=== PATIENT | female | born 1955 | race Caucasian/White ===

== ENCOUNTER 2019-03-24 10:10 | Inpatient (IN) | payer SELFPAY ==
[2019-03-24] VITALS (9 sets, daily range): BP systolic 105–155; BP diastolic 58–85; PULSE 79–111; RESP 12–22; TEMP 36.4–39.6; O2SAT 94–98; BMI 25.4; BMI 26.2
--- NOTE | 2019-03-24 10:44 | ED_ITS ---
HPI - Fever General Chief Complaint: Fever Stated Complaint: Fever,Shakes, feels like passing out Time Seen by Provider: 03/24/19 10:29 Source: patient Mode of arrival: ambulatory Limitations: no limitations History of Present Illness HPI Narrative: Patient is a 63-year-old female who presents with cough fever shortness of breath ongoing for last 4 days. She also has been nauseated but no vomiting. She has had fever as chills shakes sweats. She currently has a temperature of 103? in the ED. She is coughing. She traveled to [facility] last month for 2 weeks. Was doing well until 4 days ago. No specific abdominal pain just nausea. Related Data Home Medications Medication Instructions Recorded Confirmed Vitamin D3 03/24/19 Allergies Allergy/AdvReac Type Severity Reaction Status Date / Time morphine Allergy Verified 03/24/19 10:22 Review of Systems Review of Systems ROS Unobtainable: All systems reviewed & are unremarkable except as noted in HPI and below Constitutional Reports body ache(s), Reports chills and Reports fever(s) Eyes Denies change in vision, Denies eye discharge, Denies irritation and Denies loss of vision ENT Ears, Nose, Mouth, and Throat: Denies change in voice, Denies neck pain and Denies sore throat Cardiovascular Denies chest pain, Denies irregular heart rhythm, Denies lightheadedness, Denies palpitations, Reports dyspnea and Denies orthopnea Respiratory Reports cough, Denies hemoptysis, Reports pain with cough and Reports dyspnea Gastrointestinal Gastrointestinal: Denies abdominal pain, Denies change in bowel habits, Denies diarrhea, Denies nausea and Denies vomiting Genitourinary Denies hematuria, Denies flank pain, Denies urinary incontinence and Denies urinary urgency Musculoskeletal Denies neck pain Integumentary/Breasts Denies pruritus, Denies erythema, Denies rash and Denies wounds Neurologic Denies loss of vision Endocrine Denies palpitations [facility] Medical History (Updated 03/24/19 @ 15:45 by Cassandra Pinedo RN) H/O: hysterectomy (Acute) Patient denies significant medical history (Acute) Surgical History (Updated 03/24/19 @ 15:47 by Cassandra Pinedo RN) H/O bone graft (Acute) History of removal of cyst (Acute) Social History household members: children Smoking Status: Former smoker alcohol intake: never substance use type: does not use Social History household members: children Smoking Status: Former smoker alcohol intake: never substance use type: does not use Exam Initial Vital Signs Initial Vital Signs: Vital Signs Temperature 103.3 F H 03/24/19 10:22 Pulse Rate 111 H 03/24/19 10:22 Respiratory Rate 22 03/24/19 10:22 Blood Pressure 155/85 H 03/24/19 10:22 Pulse Oximetry 94 03/24/19 10:22 GENERAL: Ill-appearing middle-aged female coughing HEENT: Head atraumatic,EOMI, pupils reactive, face symmetric CARDIOVASCULAR: Regular rate and rhythm without murmurs, rubs or gallops. RESPIRATORY: Breath sounds equal bilaterally, no wheezes rales or rhonchi. ABDOMEN: Soft, nontender. Normoactive bowel sounds all 4 quadrants. No guarding or rebound. EXTREMITIES: Normal range of motion, no clubbing or edema. Neurovascularly intact NEUROLOGICAL: Alert and oriented x4.Normal gait and speech. Cranial nerves II through XII grossly intact. SKIN: Warm, dry, no laceration, no petechiae, no rashes or lesions. Course Orders Ordered: ED Orders 03/24/19 10:15 Lipase Stat 03/24/19 10:42 XR chest 1V Stat 03/24/19 10:45 Complete Blood Count AUTO DIFF Stat Comprehensive Metabolic Panel Stat Lactate (Lactic Acid) Stat Procalcitonin Stat 03/24/19 11:16 Blood Culture Stat 03/24/19 11:59 CT abdomen pelvis w con Stat 03/24/19 12:05 Ictotest Urine Stat Urinalysis and Microscopic Stat Urine Culture Stat 03/24/19 13:34 Education, smoking cessation ONGOING 03/24/19 14:47 Education, smoking cessation Once 03/25/19 05:00 Basic Metabolic Panel Routine Complete Blood Count AUTO DIFF Routine Hepatic (Liver) Panel Routine Procalcitonin Routine Acetaminophen (Tylenol) 650 mg PO Q6HR PRN PRN Reason: As Needed for Fever/Mild Pain Last Admin: 03/24/19 17:17 Dose: 650 mg Al Hydrox/Mg Hydrox/Simethicone (Maalox Plus) 30 ml PO Q6HR PRN PRN Reason: Dyspepsia Enoxaparin Sodium (Lovenox) 40 mg SUBCUT DAILY MARIA G Piperacillin/Tazobactam/Dextrose (Zosyn) 3.375 gm in 50 mls @ 100 mls/hr IV Q6H MARIA G Last Admin: 03/24/19 17:34 Dose: 100 mls/hr Sodium Chloride (Normal Saline 0.9%) 1,000 mls @ 100 mls/hr IV CONT MARIA G Last Admin: 03/24/19 17:32 Dose: 100 mls/hr Magnesium Hydroxide (Milk Of Magnesia) 30 ml PO DAILY PRN PRN Reason: Constipation Ondansetron HCl (Zofran) 4 mg IV Q4HR PRN PRN Reason: Nausea And Vomiting Discontinued Medications Sodium Chloride (Normal Saline 0.9%) 1,000 mls @ 1,000 mls/hr IV BOLUS ONE Stop: 03/24/19 11:41 Last Infusion: 03/24/19 12:15 Dose: 0 mls/hr Admin: 03/24/19 11:19 Dose: 1,000 mls/hr Piperacillin/Tazobactam/Dextrose (Zosyn) 3.375 gm in 50 mls @ 100 mls/hr IV NOW ONE Stop: 03/24/19 12:20 Last Infusion: 03/24/19 12:40 Dose: 0 mls/hr Admin: 03/24/19 12:12 Dose: 100 mls/hr Sodium Chloride (Normal Saline 0.9%) 1,837.05 mls @ 612.35 mls/hr 30 ml/kg infuse over 3 hr (1837.05 ml) IV NOW ONE Stop: 03/24/19 16:37 Last Infusion: 03/24/19 17:34 Dose: 100 mls/hr Admin: 03/24/19 14:23 Dose: 612.35 mls/hr Ketorolac Tromethamine (Toradol) 30 mg IV NOW ONE Stop: 03/24/19 10:43 Last Admin: 03/24/19 11:18 Dose: 30 mg Ondansetron HCl (Zofran) 4 mg IV NOW ONE Stop: 03/24/19 10:45 Last Admin: 03/24/19 11:19 Dose: 4 mg Vital Signs - 8 hr 03/24/19 10:22 03/24/19 12:11 03/24/19 12:30 Temperature 103.3 F H 100.7 F H Pulse Rate 111 H 82 Respiratory Rate 22 12 Blood Pressure 155/85 H Blood Pressure [Left Arm] 117/58 L Pulse Oximetry 94 98 03/24/19 13:24 03/24/19 13:40 03/24/19 15:51 Temperature 100.7 F H 97.5 F L Pulse Rate 80 80 Respiratory Rate 15 16 Blood Pressure 105/59 L 129/73 Blood Pressure [Left Arm] Pulse Oximetry 98 97 96 03/24/19 15:57 Temperature 98.2 F Pulse Rate 79 Respiratory Rate 16 Blood Pressure 122/66 Blood Pressure [Left Arm] Pulse Oximetry 97 MDM - Fever Lab Data Attestation: I reviewed the patient's lab results. Result diagrams: 03/24/19 10:45 03/24/19 10:45 Lab Results 03/24/19 03/24/19 03/24/19 Range/Units 10:15 10:45 10:45 WBC 16.6 H (4.5-11.0) X10^3/uL RBC 4.24 (4.0-5.2) X10^6/uL Hgb 12.7 (12.0-16.0) g/dL Hct 38.0 (36-46) % MCV 89.5 (80-100) fL MCH 30.0 (26-34) PG MCHC 33.5 (30-36) % RDW 13.8 (11.6-14.8) % Plt Count 273 (150-400) X10^3/uL Neut % (Auto) 94.5 H (50-75) % Lymph % (Auto) 2.8 L (25-40) % [place] % (Auto) 2.7 L (3-14) % Eos % (Auto) 0.0 L (2-4) % Baso % (Auto) 0.0 (0-2) % Neut # (Auto) 63004 H (3618-7745) /uL Lymph # (Auto) 500 L (4292-9154) /uL [place] # (Auto) 500 (0-900) /uL Eos # (Auto) 0 (0-450) /uL Baso # (Auto) 0 (0-100) /uL Sodium (137-145) mmol/L Potassium (3.4-5.1) mmol/L Chloride (98-107) mmol/L Carbon Dioxide (22-32) mmol/L BUN (7-17) mg/dL Creatinine (0.52-1.04) mg/dL Estimated GFR (>60) mL/min BUN/Creatinine Ratio (6-22) Glucose (80-110) mg/dL Lactate (0.7-2.1) mmol/L Calcium (8.4-10.2) mg/dL Total Bilirubin (0.2-1.3) mg/dL AST (14-36) IU/L ALT (9-52) IU/L Alkaline Phosphatase (38-126) U/L Total Protein (6.3-8.2) g/dL Albumin (3.5-5.0) g/dL Globulin (1.7-4.1) g/dL Albumin/Globulin Ratio (1.0-2.8) Lipase 52 (23-300) U/L Procalcitonin 41.17 H (<0.5) ng/mL Urine Color Urine Appearance Urine pH (4.5-8.0) Ur Specific [place] (1.000-1.035) Urine Protein (Negative) Urine Glucose (UA) (Negative) g/dL Urine Ketones (NEGATIVE) Urine Occult Blood (Negative) Urine Nitrate (Negative) Urine Bilirubin (NEGATIVE) Urine Ictotest (Negative) Urine Urobilinogen (0.2) E.U./dL Ur Leukocyte Esterase (NEGATIVE) Urine RBC (0-5/HPF) Urine WBC (0-5/HPF) Ur Squamous Epith Cells (0-5/HPF) Urine Bacteria (None) Granular Casts (None) Ur Culture Indicated? 03/24/19 03/24/19 03/24/19 Range/Units 10:45 10:45 12:05 WBC (4.5-11.0) X10^3/uL RBC (4.0-5.2) X10^6/uL Hgb (12.0-16.0) g/dL Hct (36-46) % MCV (80-100) fL MCH (26-34) PG MCHC (30-36) % RDW (11.6-14.8) % Plt Count (150-400) X10^3/uL Neut % (Auto) (50-75) % Lymph % (Auto) (25-40) % [place] % (Auto) (3-14) % Eos % (Auto) (2-4) % Baso % (Auto) (0-2) % Neut # (Auto) (8310-3092) /uL Lymph # (Auto) (9681-4758) /uL [place] # (Auto) (0-900) /uL Eos # (Auto) (0-450) /uL Baso # (Auto) (0-100) /uL Sodium 131 L (137-145) mmol/L Potassium 4.0 (3.4-5.1) mmol/L Chloride 92 L (98-107) mmol/L Carbon Dioxide 27 (22-32) mmol/L BUN 24 H (7-17) mg/dL Creatinine 1.50 H (0.52-1.04) mg/dL Estimated GFR 35.0 L (>60) mL/min BUN/Creatinine Ratio 16.0 (6-22) Glucose 135 H (80-110) mg/dL Lactate 1.6 (0.7-2.1) mmol/L Calcium 9.5 (8.4-10.2) mg/dL Total Bilirubin 1.1 (0.2-1.3) mg/dL AST 64 H (14-36) IU/L ALT 105 H (9-52) IU/L Alkaline Phosphatase 181 H (38-126) U/L Total Protein 7.8 (6.3-8.2) g/dL Albumin 4.2 (3.5-5.0) g/dL Globulin 3.6 (1.7-4.1) g/dL Albumin/Globulin Ratio 1.2 (1.0-2.8) Lipase (23-300) U/L Procalcitonin (<0.5) ng/mL Urine Color Yellow Urine Appearance Cloudy Urine pH 5.5 (4.5-8.0) Ur Specific [place] 1.020 (1.000-1.035) Urine Protein 2+ H (Negative) Urine Glucose (UA) Negative (Negative) g/dL Urine Ketones 1+ H (NEGATIVE) Urine Occult Blood 3+ H (Negative) Urine Nitrate Negative (Negative) Urine Bilirubin 1+ H (NEGATIVE) Urine Ictotest Negative (Negative) Urine Urobilinogen 0.2 (0.2) E.U./dL Ur Leukocyte Esterase 2+ H (NEGATIVE) Urine RBC 5-10/hpf H (0-5/HPF) Urine WBC >100/hpf H (0-5/HPF) Ur Squamous Epith Cells None seen (0-5/HPF) Urine Bacteria Many (>30) H (None) Granular Casts 5-10/lpf (None) Ur Culture Indicated? Specimen cultured Imaging Data CT scan - abdomen: Radiologist's impression: PROCEDURE: CT ABDOMEN PELVIS W CON INDICATIONS: vomiting for 4 days TECHNIQUE: After the administration of intravenous contrast, 5 mm thick sections acquired from the diaphragm to the symphysis. 5 mm coronal and sagittal reformats were acquired. For radiation dose reduction, the following was used: automated exposure control, adjustment of mA and/or kV according to patient size. COMPARISON: None. FINDINGS: Image quality: Excellent. ABDOMEN: Lung bases: Lung bases are clear. Heart size is normal. Solid organs: Liver is normal in size and enhancement. Gallbladder is within normal limits. Biliary system is non dilated. Pancreas enhances normally. Spleen is normal in size and enhancement. No adrenal nodules. Kidneys demonstrate normal size and enhancement, without hydronephrosis. Severe perinephric fat stranding is present bilaterally. Peritoneum and bowel: Bowel loops demonstrate normal wall thickness and caliber. No free fluid or air. Nodes and vessels: No retroperitoneal or mesenteric adenopathy by size criteria. Aorta and inferior vena cava are normal in size. Miscellaneous: No ventral hernias. PELVIS: Genitourinary: Bladder wall thickness is normal. Miscellaneous: No inguinal hernias or adenopathy. Bones: No suspicious bony lesions. No vertebral body compression fractures. IMPRESSION: 1. No evidence of bowel obstruction. 2. Bilateral perinephric fat stranding, which may indicate pyelonephritis. Correlation with urinalysis recommended. Dictated by: Nori Childress M.D. on 03/24/2019 at 12:47 Chest x-ray: Radiologist's impression: PROCEDURE: XR CHEST 1V INDICATIONS: cough sob TECHNIQUE: One view of the chest was acquired. COMPARISON: None. FINDINGS: Surgical changes and devices: None. Lungs and pleura: Lungs are clear. No pleural effusions or pneumothorax. Mediastinum: Mediastinal contours appear normal. Heart size is normal. Bones and chest wall: No suspicious bony lesions. Overlying soft tissues appear unremarkable. IMPRESSION: No acute process. Dictated by: Nori Childress M.D. on 03/24/2019 at 11:33 MDM Narrative Medical decision making narrative: Patient actually states that she thinks she had a UTI starting about a week ago. She increased her fluid intake and took some [id number] medication. However she got worse and started vomiting 3 days ago. Does appear that she has a UTI she currently has a bacterial infection with a procalcitonin of 41 but does not appear grossly septic. Normal lactic acid and normal blood pressure Dr. Go in the ED to see and evaluate patient and happily accepts Discharge Plan Departure Patient Disposition: Admitted As Inpatient Clinical Impression: Pyelonephritis Discharge Date/Time: 03/24/19 13:39 Interventions: ED Discharge Assessment Last Done: 03/24/19 13:24 Admit Date/Time: 03/24/19 13:16 Admit Provider: Sandor Go
[2019-03-24 11:09] LABS: Add Manual Diff / Slide Review NO; Basophils Absolute Auto 0 /uL (0-100); Eosinophils Absolute Auto 0 /uL (0-450); Hemoglobin 12.7 g/dL (12.0-16.0); Lymphocytes Absolute Auto 500 /uL (1100-4500); Lymphocytes Percent Auto 2.8 % (25-40); Mean Corpuscular HGB Conc 33.5 % (30-36); Mean Corpuscular Volume 89.5 fL (80-100); Monocytes Absolute Auto 500 /uL (0-900); Monocytes Percent Auto 2.7 % (3-14); Neutrophils Absolute Auto 15700 /uL (1500-7000); Neutrophils Percent Auto 94.5 % (50-75); Platelet Count 273 X10^3/uL (150-400); Red Blood Cell Count 4.24 X10^6/uL (4.0-5.2); Red Cell Distribution Width 13.8 % (11.6-14.8); White Blood Cell Count 16.6 X10^3/uL (4.5-11.0)
[2019-03-24 11:15] LABS: Alanine Aminotransferase 105 IU/L (9-52); Albumin 4.2 g/dL (3.5-5.0); Albumin Globulin Ratio 1.2 (1.0-2.8); Alkaline Phosphatase 181 U/L (38-126); Aspartate Aminotransferase 64 IU/L (14-36); Bilirubin Total 1.1 mg/dL (0.2-1.3); Blood Urea Nitrogen 24 mg/dL (7-17); Calcium 9.5 mg/dL (8.4-10.2); Carbon Dioxide 27 mmol/L (22-32); Chloride 92 mmol/L (98-107); Globulin 3.6 g/dL (1.7-4.1); Glucose 135 mg/dL (80-110); HEMOLYSIS < 15 (0-50); Lactate (Lactic Acid) 1.6 mmol/L (0.7-2.1); Sodium 131 mmol/L (137-145); Total Protein 7.8 g/dL (6.3-8.2)
[2019-03-24 11:16] LABS: Lipase 52 U/L (23-300)
[2019-03-24] MEDS: KETOROLAC 60 MG/2 ML VIAL 30 MG IV (11:18)
[2019-03-24] MEDS: SODIUM CHLORIDE 0.9% 1,000 ML 1000 ML IV (11:19)
[2019-03-24] MEDS: ONDANSETRON 4 MG/2 ML INJ IV ×2 (11:19→19:28)
[2019-03-24 11:46] LABS: Procalcitonin 41.17 ng/mL (<0.5)
--- NOTE | 2019-03-24 11:59 | DI.CT.S_ITS ---
PROCEDURE: CT ABDOMEN PELVIS W CON INDICATIONS: vomiting for 4 days TECHNIQUE: After the administration of intravenous contrast, 5 mm thick sections acquired from the diaphragm to the symphysis. 5 mm coronal and sagittal reformats were acquired. For radiation dose reduction, the following was used: automated exposure control, adjustment of mA and/or kV according to patient size. COMPARISON: None. FINDINGS: Image quality: Excellent. ABDOMEN: Lung bases: Lung bases are clear. Heart size is normal. Solid organs: Liver is normal in size and enhancement. Gallbladder is within normal limits. Biliary system is non dilated. Pancreas enhances normally. Spleen is normal in size and enhancement. No adrenal nodules. Kidneys demonstrate normal size and enhancement, without hydronephrosis. Severe perinephric fat stranding is present bilaterally. Peritoneum and bowel: Bowel loops demonstrate normal wall thickness and caliber. No free fluid or air. Nodes and vessels: No retroperitoneal or mesenteric adenopathy by size criteria. Aorta and inferior vena cava are normal in size. Miscellaneous: No ventral hernias. PELVIS: Genitourinary: Bladder wall thickness is normal. Miscellaneous: No inguinal hernias or adenopathy. Bones: No suspicious bony lesions. No vertebral body compression fractures. IMPRESSION: 1. No evidence of bowel obstruction. 2. Bilateral perinephric fat stranding, which may indicate pyelonephritis. Correlation with urinalysis recommended. Dictated by: Nori Childress M.D. on 03/24/2019 at 12:47 Approved by: Nori Childress M.D. on 03/24/2019 at 12:49
[2019-03-24] MEDS: PIPERACILLIN-TAZO 3.375 GM/50 ML FROZ.PIGGY IV ×2 (12:12→17:34)
[2019-03-24 12:15] LABS: Appearance Urine UA CLOUDY; Bilirubin Urine UA 1+ (NEGATIVE); Color Urine UA YELLOW; Glucose Urine UA NEGATIVE (Negative); Ketones Urine UA 1+ (NEGATIVE); Leukocyte Esterase Urine UA 2+ (NEGATIVE); Nitrite Urine UA NEGATIVE (Negative); Occult Blood Urine UA 3+ (Negative); Protein Urine UA 2+ (Negative); Urobilinogen Urine UA 0.2 E.U./dL (0.2); pH Urine UA 5.5 (4.5-8.0)
[2019-03-24 12:26] LABS: Ictotest Urine Negative (Negative)
[2019-03-24 12:28] LABS: RBC Urine 5-10/HPF (0-5/HPF)
[2019-03-24 12:29] LABS: Bacteria Urine Many (>30); Culture Indicated Urine Specimen Cultured; Granular Casts Urine 5-10/LPF; Squamous Epithelial Cell Urine None Seen (0-5/HPF); WBC Urine >100/HPF (0-5/HPF)
--- NOTE | 2019-03-24 13:41 | PM.HP.1 ---
History of Present Illness Date Patient Seen: 03/24/19 Time Patient Seen: 13:30 Chief complaint: Fever,Shakes, feels like passing out Narrative: Patient is a 63-year-old female in previously good health, without PCP, who presented to the emergency department due to fever, rigors and weakness. Symptoms began about a week ago with hematuria and dysuria. Patient increased fluid intake and drank cranberry juice hoping to self treat UTI. About 3 days ago she started developing fevers, rigors, and vomiting. She texted her friend this morning stating she needed help were upon her friend founded her at home in bed in a position with active rigors and brought her to the ER. Patient also indicates a mild cough. Denies back or abdominal pain. No recent antibiotic usage. She is not on any medications. ER evaluation included abnormal vitals with temp 103.3?, heart rate 111, BP 155/85 and sat 94%. WBC 16.6, procalcitonin 41, creatinine 1.5, mildly elevated LFTs. Abdomen and pelvis CT with contrast showed severe bilateral perinephric stranding, chest x-ray normal. Family history: Father with coronary disease Social history: Former smoker, quit 15 years ago. Lives by self. Patient History Medical History Patient denies significant medical history (Acute) Social History (Updated 03/24/19 @ 10:46 by Cinthya Smiley DO) Smoking Status: Never smoker alcohol intake: never substance use type: does not use Family & Social History Safety & Behavioral: Feels Safe in Current Yes Environment Been Physically Hurt or No Threatened By a Person Tobacco & Substance use: Smoking Status Former smoker alcohol intake never Meds Allergies Allergy/AdvReac Type Severity Reaction Status Date / Time morphine Allergy Verified 03/24/19 10:22 Review of Systems Review of Systems All systems reviewed & are unremarkable except as noted in HPI and below Exam Vital Signs (past 8 hours): - 03/24/19 10:22 03/24/19 12:11 03/24/19 12:30 Temperature 103.3 F H 100.7 F H Pulse Rate 111 H 82 Respiratory Rate 22 12 Blood Pressure 155/85 H Blood Pressure [Left Arm] 117/58 L Pulse Oximetry 94 98 03/24/19 13:24 Temperature 100.7 F H Pulse Rate 80 Respiratory Rate 15 Blood Pressure 105/59 L Blood Pressure [Left Arm] Pulse Oximetry 98 Oxygen Delivery Method Room Air Narrative Exam Narrative: GENERAL: Alert cooperative ill-appearing female HEAD: Atraumatic. Normocephalic. EYES: Pupils equal, round and reactive. Extraocular motions intact. No scleral icterus. No injection or drainage. OROPHARYNX: Dry oral mucosa NECK: Trachea midline. No JVD or lymphadenopathy. CARDIOVASCULAR: Regular rate and rhythm without murmurs, gallops, or rubs. (Previously tachycardic) RESPIRATORY: Clear to auscultation bilaterally. GASTROINTESTINAL: Abdomen nondistended, soft, non-tender. No hepato-splenomegaly, or palpable masses. Back: No CVAT EXTREMITIES: No edema. NEUROLOGICAL: Alert, well oriented, speech is intact, no focal weakness SKIN: warm, dry, no rash Objective Labs Result Diagrams: 03/24/19 10:45 03/24/19 10:45 Labs: Laboratory Results - last 24 hr 03/24/19 03/24/19 03/24/19 10:15 10:45 10:45 WBC 16.6 H RBC 4.24 Hgb 12.7 Hct 38.0 MCV 89.5 MCH 30.0 MCHC 33.5 RDW 13.8 Plt Count 273 Neut % (Auto) 94.5 H Lymph % (Auto) 2.8 L [place] % (Auto) 2.7 L Eos % (Auto) 0.0 L Baso % (Auto) 0.0 Neut # (Auto) 36511 H Lymph # (Auto) 500 L [place] # (Auto) 500 Eos # (Auto) 0 Baso # (Auto) 0 Sodium Potassium Chloride Carbon Dioxide BUN Creatinine Estimated GFR BUN/Creatinine Ratio Glucose Lactate Calcium Total Bilirubin AST ALT Alkaline Phosphatase Total Protein Albumin Globulin Albumin/Globulin Ratio Lipase 52 Procalcitonin 41.17 H Urine Color Urine Appearance Urine pH Ur Specific [place] Urine Protein Urine Glucose (UA) Urine Ketones Urine Occult Blood Urine Nitrate Urine Bilirubin Urine Ictotest Urine Urobilinogen Ur Leukocyte Esterase Urine RBC Urine WBC Ur Squamous Epith Cells Urine Bacteria Granular Casts Ur Culture Indicated? 03/24/19 03/24/19 03/24/19 10:45 10:45 12:05 WBC RBC Hgb Hct MCV MCH MCHC RDW Plt Count Neut % (Auto) Lymph % (Auto) [place] % (Auto) Eos % (Auto) Baso % (Auto) Neut # (Auto) Lymph # (Auto) [place] # (Auto) Eos # (Auto) Baso # (Auto) Sodium 131 L Potassium 4.0 Chloride 92 L Carbon Dioxide 27 BUN 24 H Creatinine 1.50 H Estimated GFR 35.0 L BUN/Creatinine Ratio 16.0 Glucose 135 H Lactate 1.6 Calcium 9.5 Total Bilirubin 1.1 AST 64 H ALT 105 H Alkaline Phosphatase 181 H Total Protein 7.8 Albumin 4.2 Globulin 3.6 Albumin/Globulin Ratio 1.2 Lipase Procalcitonin Urine Color Yellow Urine Appearance Cloudy Urine pH 5.5 Ur Specific [place] 1.020 Urine Protein 2+ H Urine Glucose (UA) Negative Urine Ketones 1+ H Urine Occult Blood 3+ H Urine Nitrate Negative Urine Bilirubin 1+ H Urine Ictotest Negative Urine Urobilinogen 0.2 Ur Leukocyte Esterase 2+ H Urine RBC 5-10/hpf H Urine WBC >100/hpf H Ur Squamous Epith Cells None seen Urine Bacteria Many (>30) H Granular Casts 5-10/lpf Ur Culture Indicated? Specimen cultured Assessment & Plan Assessment & Plan narrative: This is a previously healthy 63-year-old female admitted with fever, rigors and vomiting appearing from urinary source. 1. Acute bacterial pyelonephritis, bilateral, present on admission -presented with one-week urinary symptoms and several days rigors, abnormal urinalysis, CT scan with bilateral perinephric stranding -blood in urine cultures pending -Zosyn 3.375 g IV q.6 hours, IV fluid -ondansetron IV as needed nausea and vomiting -diet as tolerated 2. Sepsis, present on admission -sepsis parameters with document fever, WBC 16.6, creatinine 1.5, procalcitonin 41. Lactic acid normal. -etiology acute pyelonephritis, patient has mild cough but no infiltrate on x-ray and no abnormal lung sounds -volume resuscitated 30 mils per kg normal saline -treat acute infection as above -repeat labs in a.m. 3. Acute kidney injury, present on admission - admission labs BUN 24, creatinine 1.5 and a GFR 35 -treat with IV hydration for pre renal cause due to sepsis -repeat labs in a.m. 4. Transaminitis, unknown chronicity, present on admission -admission LFTs AST 64, ALT 105, mildly elevated alk phosphatase 181, normal bilirubin 1.0, with normal liver imaging on CT -LFT elevation likely due to sepsis -repeat LFTs in a.m., consider hepatitis C screening if LFTs not improved Disposition: Patient admitted as inpatient due to acute pyelo and sepsis requiring at least 2 midnight stays in the hospital.
[2019-03-24] MEDS: SODIUM CHLORIDE 0.9% 1,837.05 ML 612.35 ML IV (14:23)
--- NOTE | 2019-03-24 14:56 | PC.ADMIT ---
[address]44 [facility] Admission Note: The patient,Gail Fitch,63 y/o, was given written information regarding hospital policies, unit procedures and contact persons. Patient's smoking status: Former smoker. Vital Signs - 8 hr 03/24/19 10:22 03/24/19 12:11 03/24/19 12:30 Temperature 103.3 F H 100.7 F H Pulse Rate 111 H 82 Respiratory Rate 22 12 Blood Pressure 155/85 H Blood Pressure [Left Arm] 117/58 L Pulse Oximetry 94 98 03/24/19 13:24 03/24/19 13:40 Temperature 100.7 F H 97.5 F L Pulse Rate 80 80 Respiratory Rate 15 16 Blood Pressure 105/59 L 129/73 Blood Pressure [Left Arm] Pulse Oximetry 98 97 VSS. PATIENT REPORTS SHE ALREADY FEELS BETTER THAN SHE DID AT HOME. SHE LIVES IN [facility], AND CALLED HER FRIEND WHO BROUGHT HER HERE. PATIENT STATED SHE COULDN'T LAST ANOTHER NIGHT AT HOME, AND HER FRIEND FOUND HER CURLED IN A BALL, WHEN SHE CAME TO PICK HER UP. STATES SHE HAD BEEN HAVING BURNING, FREQ AND URGENCY OF URINATION AT HOME, BUT NOT SO MUCH NOW. AFEBRILE AT THIS TIME. VSS. TALKATIVE. ATE CHOCOLATE PUDDING. IVF INFUSING PER ORDERS. IN GOOD SPIRITS. HER FRIEND WILL TAKE HER WALLET AND PURSE HOME WITH HER.
--- NOTE | 2019-03-24 15:59 | PC.NURSE ---
Addendum entered by Cassandra Pinedo R.N. 03/24/19 22:54: IV pump beeping, positional to IV in AC. I had been able to get IV infusing again until earlier this evening when patient started having moderate rigors, shaking bed with full body tremor, unable to keep arm straight. Afebrile at that time, I medicated patient with 2 Tylenol & IV antibiotic infusing. After about 40 minutes tremors stopped, temp retaken at 99.3. IV still beeping intemittently. Re-start attempted x 1 but patient coughed forcefully during attempt & RN lost IV. Current IV site to [facility] redressed and taped with some tension, since then IV has not beeped once. Patient said able to sleep for 2 hours, then asked to get up to BR to void. After back to bed she began coughing forcefully, non-productive. Reports cough started ever since all of the rest of this started--about 3 days. Also reported nausea, medicated with IV Zofran. Since then denies further nausea, watching TV and dozing. I notified ROGELIO Andersen of patient's cough & that it did not appear that ER did a flu swab. He ordered a swab for respiratory panel. Swab done by familia MOSES, sample sent to lab. Original Note: Evening note: Gail is awake, alert, oriented x 3 and situation. Some pink color observed to her cheeks, she is afebrile, VS stable. IV bolus of NS continues to infuse at ordered rate of 613 ml/hour, 2nd litre now infusing with 800 ml remaining as part of bolus. RAC IV is patent, small amt of sero-sang underneath drsg. Pt denies nausea/emesis, tolerating pudding and ice water at this time. Visiting with friend at bedside, denies current needs or concerns. No tele in place at time of admission from ER even though order for tele says to continue, will place tele.
[2019-03-24] MEDS: ACETAMINOPHEN 325 MG TABLET 650 MG PO (17:17)
[2019-03-24] MEDS: SODIUM CHLORIDE 0.9% 1,000 ML 100 ML IV (17:32)
[2019-03-25] VITALS (11 sets, daily range): BP systolic 110–140; BP diastolic 63–90; PULSE 73–87; RESP 15–20; TEMP 36.7–38; O2SAT 93–99
[2019-03-25 00:06] LABS: Adenovirus Not Detected (Not Detect); Bordetella pertussis Not Detected (Not Detect); Chlamydophila pneumoniae Not Detected (Not Detect); Coronavirus 229E Not Detected (Not Detect); Coronavirus HKU1 Not Detected (Not Detect); Coronavirus NL 63 Not Detected (Not Detect); Coronavirus OC43 Not Detected (Not Detect); Human Metapneumovirus Not Detected (Not Detect); Human Rhinovirus/Enterovirus Not Detected (Not Detect); Influenza A Not Detected (Not Detect); Influenza B Not Detected (Not Detect); Mycoplasma pneumoniae Not Detected (Not Detect); Parainfluenza Virus 1 Not Detected (Not Detect); Parainfluenza Virus 2 Not Detected (Not Detect); Parainfluenza Virus 3 Not Detected (Not Detect); Parainfluenza Virus 4 Not Detected (Not Detect); Respiratory Syncytial Virus Not Detected (Not Detect)
[2019-03-25 00:54] LABS: Enterococcus species Not Detected (Not Detect); Listeria monocytogenes Not Detected (Not Detect); Staphylococcus species Not Detected (Not Detect)
[2019-03-25 00:55] LABS: Acinetobacter baumannii Not Detected (Not Detect); Enterobacteriaceae species Detected (Not Detect); KPC (carbapenem-resist gene) Not Detected (Not Detect); Streptococcus agalactiae (Gr B Not Detected (Not Detect); Streptococcus pneumonia Not Detected (Not Detect); Streptococcus pyogenes (Gr A) Not Detected (Not Detect); Streptococcus species Not Detected (Not Detect)
[2019-03-25] MEDS: ONDANSETRON 4 MG/2 ML INJ IV ×2 (00:55→11:29)
[2019-03-25] MEDS: PIPERACILLIN-TAZO 3.375 GM/50 ML FROZ.PIGGY IV ×5 (00:55→22:52)
[2019-03-25 00:56] LABS: Candida albicans Not Detected (Not Detect); Candida glabrata Not Detected (Not Detect); Candida krusei Not Detected (Not Detect); Candida parapsilosis Not Detected (Not Detect); Candida tropicalis Not Detected (Not Detect); E. coli Detected (Not Detect); Enterobacter cloacae complex Not Detected (Not Detect); Haemophilus influenzae Not Detected (Not Detect); Neisseria meningitidis Not Detected (Not Detect); Proteus species Not Detected (Not Detect); Pseudomonas aeruginosa Not Detected (Not Detect); Serratia marcescens Not Detected (Not Detect)
[2019-03-25] MEDS: ACETAMINOPHEN 325 MG TABLET 650 MG PO ×4 (02:54→20:49)
--- NOTE | 2019-03-25 04:51 | PC.NURSE ---
SHIFT 11p-7a Report received, care assumed. VSS. Pt denies pain. Has strong cough, mostly dry with a little bit of production. Around 0100, c/o nausea. Dry heaving with some phlegm production. Zofran administered without relief. Pt. continued to wretch for much of the next two hours. Obtaind order for one-time dose of Reglan. However, pt. requests Tylenol and believes it helped with the nausea before. Tylenol adminstered, pt. resting comfortably, Reglan not yet given. Contacted Ganesh Trevino with critical lab results (blood cultures). Info acknowledged, no new orders.
[2019-03-25] MEDS: SODIUM CHLORIDE 0.9% 1,000 ML 100 ML IV ×2 (05:17→17:15)
[2019-03-25 05:51] LABS: Add Manual Diff / Slide Review NO; Basophils Absolute Auto 0 /uL (0-100); Basophils Percent Auto 0.1 % (0-2); Eosinophils Absolute Auto 100 /uL (0-450); Eosinophils Percent Auto 0.4 % (2-4); Hemoglobin 10.1 g/dL (12.0-16.0); Lymphocytes Absolute Auto 700 /uL (1100-4500); Lymphocytes Percent Auto 4.4 % (25-40); Mean Corpuscular HGB Conc 33.7 % (30-36); Mean Corpuscular Volume 89.2 fL (80-100); Monocytes Absolute Auto 1300 /uL (0-900); Monocytes Percent Auto 8.4 % (3-14); Neutrophils Absolute Auto 13100 /uL (1500-7000); Neutrophils Percent Auto 86.7 % (50-75); Platelet Count 213 X10^3/uL (150-400); Red Blood Cell Count 3.36 X10^6/uL (4.0-5.2); Red Cell Distribution Width 14.1 % (11.6-14.8); White Blood Cell Count 15.1 X10^3/uL (4.5-11.0)
[2019-03-25 06:04] LABS: Alanine Aminotransferase 103 IU/L (9-52); Albumin 3.1 g/dL (3.5-5.0); Albumin Globulin Ratio 1.1 (1.0-2.8); Alkaline Phosphatase 171 U/L (38-126); Aspartate Aminotransferase 71 IU/L (14-36); Bilirubin Conjugated 0.2 md/dL (0.0-0.3); Bilirubin Total 1.4 mg/dL (0.2-1.3); Bilirubin Unconjugated 0.4 mg/dL (0.0-1.1); Globulin 2.8 g/dL (1.7-4.1); HEMOLYSIS < 15 (0-50); Total Protein 5.9 g/dL (6.3-8.2)
[2019-03-25 06:11] LABS: BUN Creatinine Ratio 15.6 (6-22); Blood Urea Nitrogen 25 mg/dL (7-17); Calcium 8.1 mg/dL (8.4-10.2); Carbon Dioxide 22 mmol/L (22-32); Chloride 101 mmol/L (98-107); Estimated Glomerular Filt Rate 32.5 mL/min (>60); Glucose 130 mg/dL (80-110); HEMOLYSIS < 15 (0-50); Potassium 3.8 mmol/L (3.4-5.1); Sodium 131 mmol/L (137-145)
[2019-03-25 06:28] LABS: Procalcitonin 32.76 ng/mL (<0.5)
--- NOTE | 2019-03-25 07:11 | PM.PN.1 ---
Subjective Date Patient Seen: 03/25/19 Interval history: Gail Fitch is a previously healthy 63-year-old female admitted with fever, rigors and vomiting secondary to E coli bacteremia and pyelonephritis. The patient is resting in bedside chair comfortably. She reports she feels significantly better than she has. She continues to have fever and chills intermittently. Her nausea has improved and her vomiting has resolved. She is tolerating full liquid diet. She did have dysuria which has resolved. Her urinary frequency and urgency persist. She denies headache, cough, shortness of breath, chest pain, abdominal pain, nausea, vomiting, fever, chills, diarrhea or constipation. She is voiding without difficulty. She is up ambulating without assistance. Exam Vital Signs (past 8 hours): - 03/25/19 00:25 03/25/19 05:38 Temperature 98.1 F 98.3 F Pulse Rate 78 73 Respiratory Rate 17 18 Blood Pressure 114/73 121/67 Pulse Oximetry 98 97 Oxygen Delivery Method Room Air Oxygen Flow Rate 0 Narrative Exam Narrative: General: Older female sitting in bedside chair and in no acute distress, well-developed, well-nourished, appropriately interactive. HEENT: Normocephalic, atraumatic. External ears without defect. Pupils equal, round, and reactive to light and accommodation. Anicteric sclerae, moist conjunctivae, and no lid lag. Neck: Supple with full range of motion. No lymphadenopathy or thyromegaly. Cardiovascular: Regular rate and rhythm without murmurs, rubs, or gallops appreciated. Pulmonary: Clear to auscultation bilaterally without crackles, wheezes, or rhonchi. Normal respiratory effort with no use of accessory muscles. Abdomen: Soft, bowel sounds present, nontender, nondistended. Mild CVA tenderness. No suprapubic tenderness. No hepatosplenomegaly or masses appreciated. Extremities: No clubbing, cyanosis, or edema. Skin: Normal temperature, turgor, and texture; no rash, ulcers, or subcutaneous nodules appreciated. Neurological: Cranial nerves grossly intact. Psychiatric: Normal mood and affect. Alert and oriented to person, place, and time. Objective Labs Result Diagrams: 03/25/19 05:15 03/25/19 05:15 Labs: Laboratory Results - last 24 hr 03/24/19 03/24/19 03/24/19 10:15 10:45 10:45 WBC 16.6 H RBC 4.24 Hgb 12.7 Hct 38.0 MCV 89.5 MCH 30.0 MCHC 33.5 RDW 13.8 Plt Count 273 Neut % (Auto) 94.5 H Lymph % (Auto) 2.8 L [place] % (Auto) 2.7 L Eos % (Auto) 0.0 L Baso % (Auto) 0.0 Neut # (Auto) 93291 H Lymph # (Auto) 500 L [place] # (Auto) 500 Eos # (Auto) 0 Baso # (Auto) 0 Sodium Potassium Chloride Carbon Dioxide BUN Creatinine Estimated GFR BUN/Creatinine Ratio Glucose Lactate Calcium Total Bilirubin Conjugated Bilirubin Unconjugated Bilirubin AST ALT Alkaline Phosphatase Total Protein Albumin Globulin Albumin/Globulin Ratio Lipase 52 Procalcitonin 41.17 H Urine Color Urine Appearance Urine pH Ur Specific [place] Urine Protein Urine Glucose (UA) Urine Ketones Urine Occult Blood Urine Nitrate Urine Bilirubin Urine Ictotest Urine Urobilinogen Ur Leukocyte Esterase Urine RBC Urine WBC Ur Squamous Epith Cells Urine Bacteria Granular Casts Ur Culture Indicated? A. baumannii (PCR) Chlamy pneumoniae PCR Adenovirus (PCR) B.parapertussis DNA PCR Ying albicans (PCR) C. glabrata (PCR) C. krusei (PCR) C. parapsilosis (PCR) C. tropicalis (PCR) Coronavirus OC43 (PCR) Coronavirus HKU1 (PCR) Coronavirus 229E (PCR) Coronavirus NL63 (PCR) Enterobacteriac sp PCR E. cloacae complex PCR Enterococcus sp PCR E. coli (PCR) H. influenzae (PCR) Human Metapneumovir PCR Influenza Type A (PCR) Influenza Type B (PCR) Klebsiella oxytoca PCR Klebsiella pneumoniae List. monocytogenes PCR M. pneumoniae (PCR) N. meningitidis (PCR) Parainfluenza 1 (PCR) Parainfluenza 2 (PCR) Parainfluenza 3 (PCR) Parainfluenza 4 (PCR) Proteus species (PCR) RSV (PCR) Entero/Rhino (PCR) Serratia marcescens PCR Staphylococcus sp PCR Staph aureus (PCR) mecA-Methicil Res Gene Streptococcus sp PCR Group A Strep (PCR) Strep agalactiae (PCR) Strep pneumoniae (PCR) P. aeruginosa (PCR) Jony/B-Vanco Res Genes KPC-Carbap Res Gene PCR 03/24/19 03/24/19 03/24/19 10:45 10:45 10:45 WBC RBC Hgb Hct MCV MCH MCHC RDW Plt Count Neut % (Auto) Lymph % (Auto) [place] % (Auto) Eos % (Auto) Baso % (Auto) Neut # (Auto) Lymph # (Auto) [place] # (Auto) Eos # (Auto) Baso # (Auto) Sodium 131 L Potassium 4.0 Chloride 92 L Carbon Dioxide 27 BUN 24 H Creatinine 1.50 H Estimated GFR 35.0 L BUN/Creatinine Ratio 16.0 Glucose 135 H Lactate 1.6 Calcium 9.5 Total Bilirubin 1.1 Conjugated Bilirubin Unconjugated Bilirubin AST 64 H ALT 105 H Alkaline Phosphatase 181 H Total Protein 7.8 Albumin 4.2 Globulin 3.6 Albumin/Globulin Ratio 1.2 Lipase Procalcitonin Urine Color Urine Appearance Urine pH Ur Specific [place] Urine Protein Urine Glucose (UA) Urine Ketones Urine Occult Blood Urine Nitrate Urine Bilirubin Urine Ictotest Urine Urobilinogen Ur Leukocyte Esterase Urine RBC Urine WBC Ur Squamous Epith Cells Urine Bacteria Granular Casts Ur Culture Indicated? A. baumannii (PCR) Not detected Chlamy pneumoniae PCR Adenovirus (PCR) B.parapertussis DNA PCR Ying albicans (PCR) Not detected C. glabrata (PCR) Not detected C. krusei (PCR) Not detected C. parapsilosis (PCR) Not detected C. tropicalis (PCR) Not detected Coronavirus OC43 (PCR) Coronavirus HKU1 (PCR) Coronavirus 229E (PCR) Coronavirus NL63 (PCR) Enterobacteriac sp PCR Detected H E. cloacae complex PCR Not detected Enterococcus sp PCR Not detected E. coli (PCR) Detected H H. influenzae (PCR) Not detected Human Metapneumovir PCR Influenza Type A (PCR) Influenza Type B (PCR) Klebsiella oxytoca PCR Not detected Klebsiella pneumoniae Not detected List. monocytogenes PCR Not detected M. pneumoniae (PCR) N. meningitidis (PCR) Not detected Parainfluenza 1 (PCR) Parainfluenza 2 (PCR) Parainfluenza 3 (PCR) Parainfluenza 4 (PCR) Proteus species (PCR) Not detected RSV (PCR) Entero/Rhino (PCR) Serratia marcescens PCR Not detected Staphylococcus sp PCR Not detected Staph aureus (PCR) Not detected mecA-Methicil Res Gene Not Reportable Streptococcus sp PCR Not detected Group A Strep (PCR) Not detected Strep agalactiae (PCR) Not detected Strep pneumoniae (PCR) Not detected P. aeruginosa (PCR) Not detected Jony/B-Vanco Res Genes Not Reportable KPC-Carbap Res Gene PCR Not detected 03/24/19 03/24/19 03/25/19 12:05 22:43 05:15 WBC 15.1 H RBC 3.36 L Hgb 10.1 L Hct 30.0 L MCV 89.2 MCH 30.0 MCHC 33.7 RDW 14.1 Plt Count 213 Neut % (Auto) 86.7 H Lymph % (Auto) 4.4 L [place] % (Auto) 8.4 Eos % (Auto) 0.4 L Baso % (Auto) 0.1 Neut # (Auto) 32599 H Lymph # (Auto) 700 L [place] # (Auto) 1300 H Eos # (Auto) 100 Baso # (Auto) 0 Sodium Potassium Chloride Carbon Dioxide BUN Creatinine Estimated GFR BUN/Creatinine Ratio Glucose Lactate Calcium Total Bilirubin Conjugated Bilirubin Unconjugated Bilirubin AST ALT Alkaline Phosphatase Total Protein Albumin Globulin Albumin/Globulin Ratio Lipase Procalcitonin Urine Color Yellow Urine Appearance Cloudy Urine pH 5.5 Ur Specific [place] 1.020 Urine Protein 2+ H Urine Glucose (UA) Negative Urine Ketones 1+ H Urine Occult Blood 3+ H Urine Nitrate Negative Urine Bilirubin 1+ H Urine Ictotest Negative Urine Urobilinogen 0.2 Ur Leukocyte Esterase 2+ H Urine RBC 5-10/hpf H Urine WBC >100/hpf H Ur Squamous Epith Cells None seen Urine Bacteria Many (>30) H Granular Casts 5-10/lpf Ur Culture Indicated? Specimen cultured A. baumannii (PCR) Chlamy pneumoniae PCR Not detected Adenovirus (PCR) Not detected B.parapertussis DNA PCR Not detected Ying albicans (PCR) C. glabrata (PCR) C. krusei (PCR) C. parapsilosis (PCR) C. tropicalis (PCR) Coronavirus OC43 (PCR) Not detected Coronavirus HKU1 (PCR) Not detected Coronavirus 229E (PCR) Not detected Coronavirus NL63 (PCR) Not detected Enterobacteriac sp PCR E. cloacae complex PCR Enterococcus sp PCR E. coli (PCR) H. influenzae (PCR) Human Metapneumovir PCR Not detected Influenza Type A (PCR) Not detected Influenza Type B (PCR) Not detected Klebsiella oxytoca PCR Klebsiella pneumoniae List. monocytogenes PCR M. pneumoniae (PCR) Not detected N. meningitidis (PCR) Parainfluenza 1 (PCR) Not detected Parainfluenza 2 (PCR) Not detected Parainfluenza 3 (PCR) Not detected Parainfluenza 4 (PCR) Not detected Proteus species (PCR) RSV (PCR) Not detected Entero/Rhino (PCR) Not detected Serratia marcescens PCR Staphylococcus sp PCR Staph aureus (PCR) mecA-Methicil Res Gene Streptococcus sp PCR Group A Strep (PCR) Strep agalactiae (PCR) Strep pneumoniae (PCR) P. aeruginosa (PCR) Jony/B-Vanco Res Genes KPC-Carbap Res Gene PCR 03/25/19 03/25/19 03/25/19 05:15 05:15 05:15 WBC RBC Hgb Hct MCV MCH MCHC RDW Plt Count Neut % (Auto) Lymph % (Auto) [place] % (Auto) Eos % (Auto) Baso % (Auto) Neut # (Auto) Lymph # (Auto) [place] # (Auto) Eos # (Auto) Baso # (Auto) Sodium 131 L Potassium 3.8 Chloride 101 Carbon Dioxide 22 BUN 25 H Creatinine 1.60 H Estimated GFR 32.5 L BUN/Creatinine Ratio 15.6 Glucose 130 H Lactate Calcium 8.1 L Total Bilirubin 1.4 H Conjugated Bilirubin 0.2 Unconjugated Bilirubin 0.4 AST 71 H ALT 103 H Alkaline Phosphatase 171 H Total Protein 5.9 L Albumin 3.1 L Globulin 2.8 Albumin/Globulin Ratio 1.1 Lipase Procalcitonin 32.76 H Urine Color Urine Appearance Urine pH Ur Specific [place] Urine Protein Urine Glucose (UA) Urine Ketones Urine Occult Blood Urine Nitrate Urine Bilirubin Urine Ictotest Urine Urobilinogen Ur Leukocyte Esterase Urine RBC Urine WBC Ur Squamous Epith Cells Urine Bacteria Granular Casts Ur Culture Indicated? A. baumannii (PCR) Chlamy pneumoniae PCR Adenovirus (PCR) B.parapertussis DNA PCR Ying albicans (PCR) C. glabrata (PCR) C. krusei (PCR) C. parapsilosis (PCR) C. tropicalis (PCR) Coronavirus OC43 (PCR) Coronavirus HKU1 (PCR) Coronavirus 229E (PCR) Coronavirus NL63 (PCR) Enterobacteriac sp PCR E. cloacae complex PCR Enterococcus sp PCR E. coli (PCR) H. influenzae (PCR) Human Metapneumovir PCR Influenza Type A (PCR) Influenza Type B (PCR) Klebsiella oxytoca PCR Klebsiella pneumoniae List. monocytogenes PCR M. pneumoniae (PCR) N. meningitidis (PCR) Parainfluenza 1 (PCR) Parainfluenza 2 (PCR) Parainfluenza 3 (PCR) Parainfluenza 4 (PCR) Proteus species (PCR) RSV (PCR) Entero/Rhino (PCR) Serratia marcescens PCR Staphylococcus sp PCR Staph aureus (PCR) mecA-Methicil Res Gene Streptococcus sp PCR Group A Strep (PCR) Strep agalactiae (PCR) Strep pneumoniae (PCR) P. aeruginosa (PCR) Jony/B-Vanco Res Genes KPC-Carbap Res Gene PCR Assessment & Plan Assessment & Plan narrative: Gail Fitch is a previously healthy 63-year-old female admitted with fever, rigors and vomiting secondary to E coli bacteremia and pyelonephritis. 1. Acute bilateral pyelonephritis, present on admission. Active. -Presented with one-week urinary symptoms and several days of rigors, abnormal urinalysis, CT scan with bilateral perinephric stranding. -Blood and urine cultures preliminarily growing E coli with sensitivities pending. -Continue Zosyn 3.375 g IV every 8 hours. -Continue IV fluid hydration with NS at 100 mL/hr. -Ordered ondansetron, Reglan, and Compazine as needed for nausea and vomiting. Continue to advance diet as tolerated. 2. Acute sepsis, present on admission. Resolved. -Sepsis criteria met including: Febrile (103.3 F), leukocytosis (WBC 16.6), creatinine 1.5, procalcitonin 41 with source pyelonephritis. Lactic acid normal. -Early goal-directed therapy med including: IV fluid hydration and broad-spectrum antibiotics. -Continue to treat acute infection as above. 3. Acute kidney injury, present on admission. Active. -Secondary to prerenal azotemia, sepsis, and pyelonephritis. -Initial creatinine 1.5. -Continue IV fluid hydration with NS at 100 mL/hr. 4. Transaminitis, unclear acuity, present on admission. Active. -Likely due to sepsis and biliary stasis. -Initial LFTs: AST 64, ALT 105, mildly elevated alk phosphatase 181, normal bilirubin 1.0, with normal liver imaging on CT. Stable with slight trend up. -Ordered hepatitis panel, pending. Patient denies IV drug use or blood transfusion. She has used cocaine and shared snorting appliance. She has had elevated LFTs in the remote past. Disposition: Patient likely to discharge in several days once culture sensitivities return and acute pyelonephritis and bacteremia have been treated adequately with IV antibiotics. Quality VTE Deep Vein Thrombosis/Pulmonary Embolism Present on Admission: No
--- NOTE | 2019-03-25 07:14 | P.PN_ITS ---
Subjective Date Patient Seen: 03/25/19 Interval history: Gail Fitch is a previously healthy 63-year-old female admitted with fever, rigors and vomiting secondary to E coli bacteremia and pyelonephritis. The patient is resting in bedside chair comfortably. She reports she feels significantly better than she has. She continues to have fever and chills intermittently. Her nausea has improved and her vomiting has resolved. She is tolerating full liquid diet. She did have dysuria which has resolved. Her urinary frequency and urgency persist. She denies headache, cough, shortness of breath, chest pain, abdominal pain, nausea, vomiting, fever, chills, diarrhea or constipation. She is voiding without difficulty. She is up ambulating without assistance. Exam Vital Signs (past 8 hours): - 03/25/19 00:25 03/25/19 05:38 Temperature 98.1 F 98.3 F Pulse Rate 78 73 Respiratory Rate 17 18 Blood Pressure 114/73 121/67 Pulse Oximetry 98 97 Oxygen Delivery Method Room Air Oxygen Flow Rate 0 Narrative Exam Narrative: General: Older female sitting in bedside chair and in no acute distress, well-developed, well-nourished, appropriately interactive. HEENT: Normocephalic, atraumatic. External ears without defect. Pupils equal, round, and reactive to light and accommodation. Anicteric sclerae, moist c onjunctivae, and no lid lag. Neck: Supple with full range of motion. No lymphadenopathy or thyromegaly. Cardiovascular: Regular rate and rhythm without murmurs, rubs, or gallops appreciated. Pulmonary: Clear to auscultation bilaterally without crackles, wheezes, or rhonchi. Normal respiratory effort with no use of accessory muscles. Abdomen: Soft, bowel sounds present, nontender, nondistended. Mild CVA tenderness. No suprapubic tenderness. No hepatosplenomegaly or masses appreciated. Extremities: No clubbing, cyanosis, or edema. Skin: Normal temperature, turgor, and texture; no rash, ulcers, or subcutaneous nodules appreciated. Neurological: Cranial nerves grossly intact. Psychiatric: Normal mood and affect. Alert and oriented to person, place, and time. Objective Labs Result Diagrams: 03/25/19 05:15 03/25/19 05:15 Labs: Laboratory Results - last 24 hr 03/24/19 03/24/19 03/24/19 10:15 10:45 10:45 WBC 16.6 H RBC 4.24 Hgb 12.7 Hct 38.0 MCV 89.5 MCH 30.0 MCHC 33.5 RDW 13.8 Plt Count 273 Neut % (Auto) 94.5 H Lymph % (Auto) 2.8 L Mcduffie % (Auto) 2.7 L Eos % (Auto) 0.0 L Baso % (Auto) 0.0 Neut # (Auto) 58075 H Lymph # (Auto) 500 L Mcduffie # (Auto) 500 Eos # (Auto) 0 Baso # (Auto) 0 Sodium Potassium Chloride Carbon Dioxide BUN Creatinine Estimated GFR BUN/Creatinine Ratio Glucose Lactate Calcium Total Bilirubin Conjugated Bilirubin Unconjugated Bilirubin AST ALT Alkaline Phosphatase Total Protein Albumin Globulin Albumin/Globulin Ratio Lipase 52 Procalcitonin 41.17 H Urine Color Urine Appearance Urine pH Ur Specific [place] Urine Protein Urine Glucose (UA) Urine Ketones Urine Occult Blood Urine Nitrate Urine Bilirubin Urine Ictotest Urine Urobilinogen Ur Leukocyte Esterase Urine RBC Urine WBC Ur Squamous Epith Cells Urine Bacteria Granular Casts Ur Culture Indicated? A. baumannii (PCR) Chlamy pneumoniae PCR Adenovirus (PCR) B.parapertussis DNA PCR Ying albicans (PCR) C. glabrata (PCR) C. krusei (PCR) C. parapsilosis (PCR) C. tropicalis (PCR) Coronavirus OC43 (PCR) Coronavirus HKU1 (PCR) Coronavirus 229E (PCR) Coronavirus NL63 (PCR) Enterobacteriac sp PCR E. cloacae complex PCR Enterococcus sp PCR E. coli (PCR) H. influenzae (PCR) Human Metapneumovir PCR Influenza Type A (PCR) Influenza Type B (PCR) Klebsiella oxytoca PCR Klebsiella pneumoniae List. monocytogenes PCR M. pneumoniae (PCR) N. meningitidis (PCR) Parainfluenza 1 (PCR) Parainfluenza 2 (PCR) Parainfluenza 3 (PCR) Parainfluenza 4 (PCR) Proteus species (PCR) RSV (PCR) Entero/Rhino (PCR) Serratia marcescens PCR Staphylococcus sp PCR Staph aureus (PCR) mecA-Methicil Res Gene Streptococcus sp PCR Group A Strep (PCR) Strep agalactiae (PCR) Strep pneumoniae (PCR) P. aeruginosa (PCR) Jony/B-Vanco Res Genes KPC-Carbap Res Gene PCR 03/24/19 03/24/19 03/24/19 10:45 10:45 10:45 WBC RBC Hgb Hct MCV MCH MCHC RDW Plt Count Neut % (Auto) Lymph % (Auto) Mcduffie % (Auto) Eos % (Auto) Baso % (Auto) Neut # (Auto) Lymph # (Auto) Mcduffie # (Auto) Eos # (Auto) Baso # (Auto) Sodium 131 L Potassium 4.0 Chloride 92 L Carbon Dioxide 27 BUN 24 H Creatinine 1.50 H Estimated GFR 35.0 L BUN/Creatinine Ratio 16.0 Glucose 135 H Lactate 1.6 Calcium 9.5 Total Bilirubin 1.1 Conjugated Bilirubin Unconjugated Bilirubin AST 64 H ALT 105 H Alkaline Phosphatase 181 H Total Protein 7.8 Albumin 4.2 Globulin 3.6 Albumin/Globulin Ratio 1.2 Lipase Procalcitonin Urine Color Urine Appearance Urine pH Ur Specific [place] Urine Protein Urine Glucose (UA) Urine Ketones Urine Occult Blood Urine Nitrate Urine Bilirubin Urine Ictotest Urine Urobilinogen Ur Leukocyte Esterase Urine RBC Urine WBC Ur Squamous Epith Cells Urine Bacteria Granular Casts Ur Culture Indicated? A. baumannii (PCR) Not detected Chlamy pneumoniae PCR Adenovirus (PCR) B.parapertussis DNA PCR Ying albicans (PCR) Not detected C. glabrata (PCR) Not detected C. krusei (PCR) Not detected C. parapsilosis (PCR) Not detected C. tropicalis (PCR) Not detected Coronavirus OC43 (PCR) Coronavirus HKU1 (PCR) Coronavirus 229E (PCR) Coronavirus NL63 (PCR) Enterobacteriac sp PCR Detected H E. cloacae complex PCR Not detected Enterococcus sp PCR Not detected E. coli (PCR) Detected H H. influenzae (PCR) Not detected Human Metapneumovir PCR Influenza Type A (PCR) Influenza Type B (PCR) Klebsiella oxytoca PCR Not detected Klebsiella pneumoniae Not detected List. monocytogenes PCR Not detected M. pneumoniae (PCR) N. meningitidis (PCR) Not detected Parainfluenza 1 (PCR) Parainfluenza 2 (PCR) Parainfluenza 3 (PCR) Parainfluenza 4 (PCR) Proteus species (PCR) Not detected RSV (PCR) Entero/Rhino (PCR) Serratia marcescens PCR Not detected Staphylococcus sp PCR Not detected Staph aureus (PCR) Not detected mecA-Methicil Res Gene Not Reportable Streptococcus sp PCR Not detected Group A Strep (PCR) Not detected Strep agalactiae (PCR) Not detected Strep pneumoniae (PCR) Not detected P. aeruginosa (PCR) Not detected Jony/B-Vanco Res Genes Not Reportable KPC-Carbap Res Gene PCR Not detected 03/24/19 03/24/19 03/25/19 12:05 22:43 05:15 WBC 15.1 H RBC 3.36 L Hgb 10.1 L Hct 30.0 L MCV 89.2 MCH 30.0 MCHC 33.7 RDW 14.1 Plt Count 213 Neut % (Auto) 86.7 H Lymph % (Auto) 4.4 L Mcduffie % (Auto) 8.4 Eos % (Auto) 0.4 L Baso % (Auto) 0.1 Neut # (Auto) 98661 H Lymph # (Auto) 700 L Mcduffie # (Auto) 1300 H Eos # (Auto) 100 Baso # (Auto) 0 Sodium Potassium Chloride Carbon Dioxide BUN Creatinine Estimated GFR BUN/Creatinine Ratio Glucose Lactate Calcium Total Bilirubin Conjugated Bilirubin Unconjugated Bilirubin AST ALT Alkaline Phosphatase Total Protein Albumin Globulin Albumin/Globulin Ratio Lipase Procalcitonin Urine Color Yellow Urine Appearance Cloudy Urine pH 5.5 Ur Specific [place] 1.020 Urine Protein 2+ H Urine Glucose (UA) Negative Urine Ketones 1+ H Urine Occult Blood 3+ H Urine Nitrate Negative Urine Bilirubin 1+ H Urine Ictotest Negative Urine Urobilinogen 0.2 Ur Leukocyte Esterase 2+ H Urine RBC 5-10/hpf H Urine WBC >100/hpf H Ur Squamous Epith Cells None seen Urine Bacteria Many (>30) H Granular Casts 5-10/lpf Ur Culture Indicated? Specimen cultured A. baumannii (PCR) Chlamy pneumoniae PCR Not detected Adenovirus (PCR) Not detected B.parapertussis DNA PCR Not detected Ying albicans (PCR) C. glabrata (PCR) C. krusei (PCR) C. parapsilosis (PCR) C. tropicalis (PCR) Coronavirus OC43 (PCR) Not detected Coronavirus HKU1 (PCR) Not detected Coronavirus 229E (PCR) Not detected Coronavirus NL63 (PCR) Not detected Enterobacteriac sp PCR E. cloacae complex PCR Enterococcus sp PCR E. coli (PCR) H. influenzae (PCR) Human Metapneumovir PCR Not detected Influenza Type A (PCR) Not detected Influenza Type B (PCR) Not detected Klebsiella oxytoca PCR Klebsiella pneumoniae List. monocytogenes PCR M. pneumoniae (PCR) Not detected N. meningitidis (PCR) Parainfluenza 1 (PCR) Not detected Parainfluenza 2 (PCR) Not detected Parainfluenza 3 (PCR) Not detected Parainfluenza 4 (PCR) Not detected Proteus species (PCR) RSV (PCR) Not detected Entero/Rhino (PCR) Not detected Serratia marcescens PCR Staphylococcus sp PCR Staph aureus (PCR) mecA-Methicil Res Gene Streptococcus sp PCR Group A Strep (PCR) Strep agalactiae (PCR) Strep pneumoniae (PCR) P. aeruginosa (PCR) Jony/B-Vanco Res Genes KPC-Carbap Res Gene PCR 03/25/19 03/25/19 03/25/19 05:15 05:15 05:15 WBC RBC Hgb Hct MCV MCH MCHC RDW Plt Count Neut % (Auto) Lymph % (Auto) [place] % (Auto) Eos % (Auto) Baso % (Auto) Neut # (Auto) Lymph # (Auto) [place]du[place] # (Auto) Eos # (Auto) Baso # (Auto) Sodium 131 L Potassium 3.8 Chloride 101 Carbon Dioxide 22 BUN 25 H Creatinine 1.60 H Estimated GFR 32.5 L BUN/Creatinine Ratio 15.6 Glucose 130 H Lactate Calcium 8.1 L Total Bilirubin 1.4 H Conjugated Bilirubin 0.2 Unconjugated Bilirubin 0.4 AST 71 H ALT 103 H Alkaline Phosphatase 171 H Total Protein 5.9 L Albumin 3.1 L Globulin 2.8 Albumin/Globulin Ratio 1.1 Lipase Procalcitonin 32.76 H Urine Color Urine Appearance Urine pH Ur Specific [place] Urine Protein Urine Glucose (UA) Urine Ketones Urine Occult Blood Urine Nitrate Urine Bilirubin Urine Ictotest Urine Urobilinogen Ur Leukocyte Esterase Urine RBC Urine WBC Ur Squamous Epith Cells Urine Bacteria Granular Casts Ur Culture Indicated? A. baumannii (PCR) Chlamy pneumoniae PCR Adenovirus (PCR) B.parapertussis DNA PCR Ying albicans (PCR) C. glabrata (PCR) C. krusei (PCR) C. parapsilosis (PCR) C. tropicalis (PCR) Coronavirus OC43 (PCR) Coronavirus HKU1 (PCR) Coronavirus 229E (PCR) Coronavirus NL63 (PCR) Enterobacteriac sp PCR E. cloacae complex PCR Enterococcus sp PCR E. coli (PCR) H. influenzae (PCR) Human Metapneumovir PCR Influenza Type A (PCR) Influenza Type B (PCR) Klebsiella oxytoca PCR Klebsiella pneumoniae List. monocytogenes PCR M. pneumoniae (PCR) N. meningitidis (PCR) Parainfluenza 1 (PCR) Parainfluenza 2 (PCR) Parainfluenza 3 (PCR) Parainfluenza 4 (PCR) Proteus species (PCR) RSV (PCR) Entero/Rhino (PCR) Serratia marcescens PCR Staphylococcus sp PCR Staph aureus (PCR) mecA-Methicil Res Gene Streptococcus sp PCR Group A Strep (PCR) Strep agalactiae (PCR) Strep pneumoniae (PCR) P. aeruginosa (PCR) Jony/B-Vanco Res Genes KPC-Carbap Res Gene PCR Assessment & Plan Assessment & Plan narrative: Gail Fitch is a previously healthy 63-year-old female admitted with fever, rigors and vomiting secondary to E coli bacteremia and pyelonephritis. 1. Acute bilateral pyelonephritis, present on admission. Active. -Presented with one-week urinary symptoms and several days of rigors, abnormal urinalysis, CT scan with bilateral perinephric stranding. -Blood and urine cultures preliminarily growing E coli with sensitivities pending. -Continue Zosyn 3.375 g IV every 8 hours. -Continue IV fluid hydration with NS at 100 mL/hr. -Ordered ondansetron, Reglan, and Compazine as needed for nausea and vomiting. Continue to advance diet as tolerated. 2. Acute sepsis, present on admission. Resolved. -Sepsis criteria met including: Febrile (103.3 F), leukocytosis (WBC 16.6), creatinine 1.5, procalcitonin 41 with source pyelonephritis. Lactic acid normal. -Early goal-directed therapy med including: IV fluid hydration and broad- spectrum antibiotics. -Continue to treat acute infection as above. 3. Acute kidney injury, present on admission. Active. -Secondary to prerenal azotemia, sepsis, and pyelonephritis. -Initial creatinine 1.5. -Continue IV fluid hydration with NS at 100 mL/hr. 4. Transaminitis, unclear acuity, present on admission. Active. -Likely due to sepsis and biliary stasis. -Initial LFTs: AST 64, ALT 105, mildly elevated alk phosphatase 181, normal bilirubin 1.0, with normal liver imaging on CT. Stable with slight trend up. -Ordered hepatitis panel, pending. Patient denies IV drug use or blood transfusion. She has used cocaine and shared snorting appliance. She has had elevated LFTs in the remote past. Disposition: Patient likely to discharge in several days once culture sensitivities return and acute pyelonephritis and bacteremia have been treated adequately with IV antibiotics. Quality VTE Deep Vein Thrombosis/Pulmonary Embolism Present on Admission: No
--- NOTE | 2019-03-25 09:22 | CM.DANOTE ---
Addendum entered by Zuly Sanchez LPN 03/25/19 13:42: Admission counselor: Rosa Wall did see pt again as requested. She assessed for [place] [employer] but reports that pt is over income for federal poverty levels and does not qualify. She confirms that she should qualify for the oc care that she will need to assist with paying her hospital bill. Original Note: Discharge Planning/Care Management DCP: assessment: case received, EMR reviewed and met with pt. Introduced self and role. Pt is a 63 year old female who admitted yesterday to care of the hospitalist team. She has no PCP at this time and she also lost her insurance during her divorce. She says she was covered until Sep 2018 and then was set up to see MAHENDRA leonard. [facility] [place] oc care application. Have also requested that she be assessed for consideration of [employer] Sent outlook email to [facility] this morning. Pt states she is generally very healthy. She has her own business doing message therapy. P: likely home when recovered. Will follow prn. CM Discharge Assessment Start: 03/25/19 09:20 Freq: Status: Active Protocol: Document 03/25/19 09:20 ITV (Rec: 03/25/19 09:22 [id number]) Discharge Planning Assessment Advance Directives? No History Provided By Patient Medical Record Prior Living Arrangements House Independent with ADL's Yes Is patient alert and oriented? 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 # of Chiropractic Care Review Status In Process Next Review Type Continued Stay Review
--- NOTE | 2019-03-25 14:53 | PT.IIE ---
Current Diagnoses Sepsis, unspecified organism (03/24/19) Surgical History (Last Updated 03/24/19 @ 15:47 by Cassandra Pinedo RN) H/O bone graft (Acute) History of removal of cyst (Acute) Medical History (Last Updated 03/24/19 @ 15:45 by Cassandra Pinedo RN) H/O: hysterectomy (Acute) Patient denies significant medical history (Acute) Physical Therapy Inpatient Evaluation/Re-Eval M1 PT/OT-IP Prior Functional Status Start: 03/25/19 14:36 Freq: NEEDED Status: Active Protocol: Document 03/25/19 14:15 HH (Rec: 03/25/19 14:52 [id number]) Medical Review Prior Functional Status Medical History Reviewed Yes Diet/Fluid Consistency Regular Communication no deficits noted. Able to make needs known Mobility and Gait Pt was an independent ambulator at home and community. Pt drives and able to hike regularly and participate martial arts class 3times /week. Pt also likes to kayak as a hobbie. Activities of Daily Living and IADL's Independent for all ADLs and IADLs Social History Household Members none Living Arrangements House Number of Floors (Floors) One Floor Number of Stairs To Enter/Railing? 3 BEATRIZ with B railings Home Environment Standard Height Toilet Tub/Shower Home Equipment Hand Held Shower Grab Bars Near Toilet Grab Bars In Shower Employment Status Researcher Employed Additional Social History Comment Pt lives alone and states she is generally very healthy. She said she has friends live closeby and able to rotate to assist her as needed if she gets d/c to home. Pt has never been hospitalized for such medical condition. She has her own business doing [employer] therapy and currently planning to retire. Pt has a bacterial infection with a procalcitonin of 41 but does not appear grossly septic. M2 PT-IP Current Condition Start: 03/25/19 14:36 Freq: NEEDED Status: Active Protocol: Document 03/25/19 14:15 HH (Rec: 03/25/19 14:52 [id number]) Physical Therapy Current Condition Current Condition Evaluation Date 03/25/19 Treatment Diagnosis Sepsis, Acute B pyelonephritis , JAMISON, impaired activity tolerance Onset Date 03/24/19 Weight Bearing Status Weight Bearing Status Weight Bear as Tolerated M3 PT-IP Subjective Start: 03/25/19 14:36 Freq: NEEDED Status: Active Protocol: Document 03/25/19 14:15 (Rec: 03/25/19 14:52 [id number]) Subjective Physical Therapy Visit Type Type Initial Evaluation Visit Start Time 14:15 Visit Stop Time 14:30 Total Visit Minutes 15 Number of HONING MACHINE OPERATOR TOOL Visits 0 Physical Therapy Visit Comments Patient Comments Felecia been feeling very nausea on and off. I was doing good until an hour earlier but i still want to get up and walk. Patient Goals To return home Therapy Pain Assessment Pain Present Pain Present Denied Pain M4 PT-IP Mobility and Gait Start: 03/25/19 14:36 Freq: NEEDED Status: Active Protocol: Document 03/25/19 14:15 (Rec: 03/25/19 14:52 [id number]) PT-Bed Mobility Assessment Rolling Type of Rolling Roll to Right Level of Assist Independent Supine to Sit Supine to Sit Independent Scooting Scooting to Edge of Bed Independent Scooting Up and Down in Bed Independent PT-Transfer Assessment Sit to and From Stand Sit to and from Stand Independent Use of Upper Extremities Equipment Transfer Assistive Device None Orthotic/Prosthetic Devices or Brace: No Transfers Transfer Destination Bed Chair Transfer Technique Stand Step Pivot Transfer Ability Level of Assist Independent Comments Mobility Comments Pt in supine upon assessment. Pt got up from supine to long sit, followed by pivoting to R . She performed STS multiple times without AD for chair transfer independently and very steady. Gait Assessment Gait Gait Assistance Required: Independent Standby Assistance Distance (Feet) 250 Able to Maintain Weight Bearing Status Yes During Gait Assistive Devices Assistive Device None Orthotic/Prosthetic Devices or Brace: No Gait Deviations General Gait Pattern Within Normal Limits Factors Limiting Gait Function Factors Limiting Gait Function Decreased Activity Tolerance Respiratory Distress Comments Gait Comments Pt amb 1 loop around both [place] [facility] without AD. Pt was very steady and normal gait speed. Pt states Im at my baseline for my mobility. Stair Climbing Assessment Evaluation Level of Assist On Stairs Independent Devices Stair Climbing Assistive Devices Left Railing Right Railing Technique/Endurance Stair Climbing Direction Ascend and Descend Stair Climbing Technique Step Over Step Number of Steps Climbed 3 Query Text: Stair Climbing Set # Repetitions (reps) 2 PT-Balance Assessment Sitting Balance and Reactions Static Sitting Balance Ability Normal Dynamic Sitting Balance Ability Normal Standing Balance and Reactions Static Standing Balance Ability Normal Dynamic Standing Balance Ability Normal M5 PT-IP Objective Assessments Start: 03/25/19 14:36 Freq: NEEDED Status: Active Protocol: Document 03/25/19 14:15 (Rec: 03/25/19 14:52 [id number]) Orientation Orientation/Cognition Level of Alertness Alert Orientation Name Age Birthday Month Date Year Day of Week Place Situation Language Function Ability No Deficits Noted Safety Awareness Understands Safety Issues Memory Description No Deficits Noted Gross Range of Motion Upper Extremity ROM Assessment Within Functional Limits Lower Extremity ROM Assessment Within Functional Limits Strength Upper Extremity Strength Assessment Within Functional Limits Lower Extremity Strength Assessment Within Functional Limits Coordination Assessment Gross Coordination Gross Coordination WNL Assessment Finger to Nose Test Normal Performance Pronation/Supination Test Normal Performance Sensation Assessment Sensation Gross Sensation WNL Light Touch Intact Proprioception (Position) Intact Muscle Tone Muscle Tone WNL Yes M6 PT-IP Treatment Start: 03/25/19 14:36 Freq: NEEDED Status: Active Protocol: Document 03/25/19 14:15 (Rec: 03/25/19 14:52 [id number]) Physical Therapy Treatment Education Education Provided Safety M7 PT-IP Assessment and Plan Start: 03/25/19 14:36 Freq: NEEDED Status: Active Protocol: Document 03/25/19 14:15 (Rec: 03/25/19 14:52 [id number]) PT Summary Assessment and Plan Potential Rehabilitation Potential Excellent Status of Condition at Evaluation Stable Summary Impairments Sensation Progress Towards Goals Safe For Discharge Assessment Summary Pt is low complexity eval only and does not need skilled therapy to improve her mobility. Pt did cough constantly and wanted to vomit during assessment. However, Pt currently is able to perform all functional mobility/ ADLs without AD SBA/ independently. Her main complaints is her discomfort/ nausea sensation. She states her mobility is at baseline. Recommended pt to mobilize as needed with nursing staff SBA. Pt is safe to d.c home once she is medically stable. Frequency of Treatment Frequency Of Treatment Discharge Discharge Recommendations PT Discharge Recommendations Home
--- NOTE | 2019-03-25 15:25 | OT.IP.TRT ---
Current Diagnoses Sepsis, unspecified organism (03/24/19) Occupational Therapy Treatment Note M3 OT- IP Subjective and Pain Start: 03/25/19 15:23 Freq: Status: Active Protocol: Document 03/25/19 15:23 [facility] (Rec: 03/25/19 15:25 [facility] [id number]) OT- Subjective Occupational Therapy Visit Type Type Patient Refusal Notes Attempted OT eval with pt. Pt feels that main barrier is nausea and vomiting at this time and able to get around in the room independently/SBA with no device. Pt states has lots of friends to assist her at home, already able to get her underwear on and use the bathroom, and does not want OT at this time. Therefore discharge OT eval orders.
--- NOTE | 2019-03-25 16:05 | PC.NURSE ---
Addendum entered by Juana Badillo R.N. 03/25/19 21:03: pt reporting moderate to severe cramps at 1939 and asking for pain meds. Unable to provide anything until 2049. Repositioned pt to bed and offered hot or cold pack, pt declined. At 2044 I arrived back on the floor to pt c/o 6/10 pain and requesting Tylenol. I administered 650mg. Patient soon there after started retching, shaking, and vomited approximately 125ml of clear fluid, no pills in emesis. Administered 1ml compezine IV. Almost immediately pt reported feeling better and denying cramps, shakes soon stopped. pt temp is 99.0 and will recheck in 30min Addendum entered by Juana Badillo R.N. 03/25/19 16:09: pt reporting decreased appitite and states nothing sounds good. I encouraged pt to order something that sounded good for dinner and to take small bites, even if it's just a couple (to assist with energy). Patient agreed and ordered a shake and agreed to eat some jello right now. Patient tolerating two jellos while I was in the room completing my assessment. Original Note: [place] SHIFT pt AO and receptive to care. Very pleasant and motivated to heal/feel better. SBA to BR and voiding, denying pain/n/v although reports nausea earlier today. Reporting intermittent cramping to abdomen which has responded to Tylenol. Nausea seems to subside with Tylenol as well. No pain or irritation with voiding. Temp of 100.4 at start of shift, AM nurse administered Tylenol at 1450, temp at 1550 is 98.2 and cramping has decreased. NS infusing 100/hr and tolerating well. Awaiting sensitivity to return from UA sample.
[2019-03-25] MEDS: PROCHLORPERAZINE 10 MG/2 ML VIAL 5 MG IV (20:56)
[2019-03-26] VITALS (8 sets, daily range): BP systolic 122–145; BP diastolic 75–85; PULSE 67–77; RESP 16; TEMP 36.7–37.2; O2SAT 96–98
--- NOTE | 2019-03-26 00:18 | PC.NURSE ---
2300- Pt admit for sepsis & pylonephritis--PO Tylenol being given for abdom/pelvic pain pt refers to as 'spasms'. States pain is controlled as of now. Prev RN reported pt has had bouts of nausea persistent w/ pain and emesis x2. Denies pain at this time however states she still has urinary urgency. NS running into R AC as ordered; RA w/ VSS. 0022- New orders for PRN PO Tylenol q4hr instead of q6hr.
[2019-03-26] MEDS: ACETAMINOPHEN 325 MG TABLET 650 MG PO ×6 (02:25→22:51)
[2019-03-26] MEDS: PIPERACILLIN-TAZO 3.375 GM/50 ML FROZ.PIGGY IV ×3 (05:52→22:13)
[2019-03-26 06:54] LABS: Add Manual Diff / Slide Review NO; Basophils Absolute Auto 0 /uL (0-100); Basophils Percent Auto 0.3 % (0-2); Eosinophils Absolute Auto 100 /uL (0-450); Eosinophils Percent Auto 0.9 % (2-4); Hematocrit 29.6 % (36-46); Hemoglobin 10.1 g/dL (12.0-16.0); Lymphocytes Absolute Auto 700 /uL (1100-4500); Mean Corpuscular HGB Conc 34.1 % (30-36); Mean Corpuscular Hemoglobin 30.3 PG (26-34); Mean Corpuscular Volume 89.1 fL (80-100); Monocytes Absolute Auto 800 /uL (0-900); Monocytes Percent Auto 8.3 % (3-14); Neutrophils Absolute Auto 8500 /uL (1500-7000); Neutrophils Percent Auto 83.5 % (50-75); Platelet Count 237 X10^3/uL (150-400); Red Blood Cell Count 3.32 X10^6/uL (4.0-5.2); Red Cell Distribution Width 14.5 % (11.6-14.8); White Blood Cell Count 10.2 X10^3/uL (4.5-11.0)
[2019-03-26 07:04] LABS: Alanine Aminotransferase 110 IU/L (9-52); Alanine Aminotransferase 114 IU/L (9-52); Albumin 2.7 g/dL (3.5-5.0); Albumin Globulin Ratio 1.2 (1.0-2.8); Alkaline Phosphatase 176 U/L (38-126); Alkaline Phosphatase 180 U/L (38-126); Aspartate Aminotransferase 88 IU/L (14-36); Aspartate Aminotransferase 89 IU/L (14-36); BUN Creatinine Ratio 12.1 (6-22); Bilirubin Conjugated 0.4 md/dL (0.0-0.3); Bilirubin Total 1.6 mg/dL (0.2-1.3); Bilirubin Total 1.7 mg/dL (0.2-1.3); Bilirubin Unconjugated 0.4 mg/dL (0.0-1.1); Blood Urea Nitrogen 17 mg/dL (7-17); Calcium 8.3 mg/dL (8.4-10.2); Carbon Dioxide 23 mmol/L (22-32); Chloride 105 mmol/L (98-107); Estimated Glomerular Filt Rate 37.9 mL/min (>60); Globulin 2.3 g/dL (1.7-4.1); Glucose 117 mg/dL (80-110); HEMOLYSIS < 15 (0-50); Magnesium 2.3 mg/dL (1.6-2.3); Potassium 3.4 mmol/L (3.4-5.1); Sodium 136 mmol/L (137-145)
[2019-03-26 07:21] LABS: Procalcitonin 17.44 ng/mL (<0.5)
--- NOTE | 2019-03-26 13:15 | CM.DPC ---
DCP: continued: case discussed in Team Rounds. Dr. Lopez expects a few more days of IV antibiotics and then a d/c to home or oral medications. DCP team will be following prn.
--- NOTE | 2019-03-26 16:23 | P.PN_ITS ---
Subjective Date Patient Seen: 03/26/19 Interval history: Gail Fitch is a previously healthy 63-year-old female admitted with fever, rigors and vomiting secondary to E coli bacteremia and pyelonephritis. The patient is resting in bedside chair comfortably. She continues to feel better each day. She has not had fevers and chills since yesterday. Her nausea and vomiting have resolved. She is tolerating a regular diet. She denies headache, cough, shortness of breath, chest pain, abdominal pain, nausea, vomiting, fever, chills, or constipation. She had 1 episode of loose stool which believes is due to decreased p.o. intake and clear liquid diet the last several days. She is voiding and eliminating without difficulty. She is up ambulating without assistance. Exam Vital Signs (past 8 hours): - 03/26/19 11:20 Temperature 98.0 F Pulse Rate 77 Respiratory Rate 16 Blood Pressure 133/79 Pulse Oximetry 98 Oxygen Delivery Method Room Air Oxygen Flow Rate 0 Narrative Exam Narrative: General: Older female sitting in bedside chair and in no acute distress, well- developed, well-nourished, appropriately interactive. HEENT: Normocephalic, atraumatic. External ears without defect. Pupils equal, round, and reactive to light and accommodation. Anicteric sclerae, moist conjunctivae, and no lid lag. Neck: Supple with full range of motion. No lymphadenopathy or thyromegaly. Cardiovascular: Regular rate and rhythm without murmurs, rubs, or gallops appreciated. Pulmonary: Clear to auscultation bilaterally without crackles, wheezes, or rhonchi. Normal respiratory effort with no use of accessory muscles. Abdomen: Soft, bowel sounds present, nontender, nondistended. CVA tenderness resolved. No suprapubic tenderness. No hepatosplenomegaly or masses appreciated. Extremities: No clubbing, cyanosis, or edema. Skin: Normal temperature, turgor, and texture; no rash, ulcers, or subcutaneous nodules appreciated. Neurological: Cranial nerves grossly intact. Psychiatric: Normal mood and affect. Alert and oriented to person, place, and time. Objective Labs Result Diagrams: 03/26/19 06:30 03/26/19 06:30 Labs: Laboratory Results - last 24 hr 03/26/19 03/26/19 03/26/19 06:30 06:30 06:30 WBC 10.2 RBC 3.32 L Hgb 10.1 L Hct 29.6 L MCV 89.1 MCH 30.3 MCHC 34.1 RDW 14.5 Plt Count 237 Neut % (Auto) 83.5 H Lymph % (Auto) 7.0 L [place] % (Auto) 8.3 Eos % (Auto) 0.9 L Baso % (Auto) 0.3 Neut # (Auto) 8500 H Lymph # (Auto) 700 L [place] # (Auto) 800 Eos # (Auto) 100 Baso # (Auto) 0 Sodium Potassium Chloride Carbon Dioxide BUN Creatinine Estimated GFR BUN/Creatinine Ratio Glucose Calcium Magnesium Total Bilirubin 1.7 H Conjugated Bilirubin 0.4 H Unconjugated Bilirubin 0.4 AST 89 H ALT 114 H Alkaline Phosphatase 176 H Total Protein 5.0 L Albumin 2.7 L Globulin 2.3 Albumin/Globulin Ratio 1.2 Procalcitonin 17.44 H 03/26/19 06:30 WBC RBC Hgb Hct MCV MCH MCHC RDW Plt Count Neut % (Auto) Lymph % (Auto) [place] % (Auto) Eos % (Auto) Baso % (Auto) Neut # (Auto) Lymph # (Auto) [place] # (Auto) Eos # (Auto) Baso # (Auto) Sodium 136 L Potassium 3.4 Chloride 105 Carbon Dioxide 23 BUN 17 Creatinine 1.40 H Estimated GFR 37.9 L BUN/Creatinine Ratio 12.1 Glucose 117 H Calcium 8.3 L Magnesium 2.3 Total Bilirubin 1.6 H Conjugated Bilirubin Unconjugated Bilirubin AST 88 H ALT 110 H Alkaline Phosphatase 180 H Total Protein 6.0 L Albumin 3.0 L Globulin 3.0 Albumin/Globulin Ratio 1.0 Procalcitonin Assessment & Plan Assessment & Plan narrative: Gail Fitch is a previously healthy 63-year-old female admitted with fever, rigors and vomiting secondary to E coli bacteremia and pyelonephritis. 1. Acute E. coli bacteremia and bilateral pyelonephritis, present on admission. Active. -Presented with 1 week urinary symptoms and several days of rigors, abnormal urinalysis, CT scan with bilateral perinephric stranding. -Blood and urine cultures grew E. coli with urine sensitivities resistant to am picillin and Bactrim. -Continue Zosyn 3.375 g IV every 8 hours for now until blood culture sensitivi ties result then will switch to likely ceftriaxone 2 g daily. -discontinued IV fluid hydration with NS at 100 mL/hr as patient is adequately hydrated. -Ordered ondansetron, Reglan, and Compazine as needed for nausea and vomiting. Continue to advance diet as tolerated. 2. Acute sepsis, present on admission. Resolved. -Sepsis criteria met including: Febrile (103.3 F), leukocytosis (WBC 16.6), cre atinine 1.5, procalcitonin 41 with source pyelonephritis. Lactic acid normal. -Early goal-directed therapy med including: IV fluid hydration and broad- spectrum antibiotics. -Continue to treat acute infection as above. 3. Acute kidney injury, present on admission. Resolving. -Secondary to prerenal azotemia, sepsis, and pyelonephritis. -Initial creatinine 1.5. Slowly trending down. -Discontinued IV fluid hydration as adequately hydrated as above. Encourage p.o. fluid intake. 4. Transaminitis, unclear acuity, present on admission. Active. -Likely due to sepsis and biliary stasis but patient reports she has had elevated LFTs in the past so may be chronic in etiology. -Initial LFTs: AST 64, ALT 105, mildly elevated alk phosphatase 181, normal bilirubin 1.0, with normal liver imaging on CT. Stable with slight trend up. -Ordered hepatitis panel, pending. Patient denies IV drug use or blood transfusion. She has used cocaine and shared snorting appliance. She has had elevated LFTs in the remote past. Disposition: Patient likely to discharge in 1-2 days once culture sensitivities return and acute pyelonephritis and bacteremia have been treated adequately with IV antibiotics for at least 3 days. Quality VTE Deep Vein Thrombosis/Pulmonary Embolism Present on Admission: No
[2019-03-27] VITALS: BP 127/76; PULSE 72; RESP 16; TEMP 36.8; O2SAT 96
--- NOTE | 2019-03-27 01:35 | PC.NURSE ---
2300- Pt admit for pylonephritis; managing pain w/ PO tylenol. Pt is saline locked; moving SBA to bathroom. VSS; tolerating regular diet. 0130- Pt CO of bed noise, bed unplugged per pt's request. Call light still working and in reach.
[2019-03-27] MEDS: ACETAMINOPHEN 325 MG TABLET 650 MG PO ×2 (03:13→08:17)
[2019-03-27 05:45] VITALS: BP 140/87; PULSE 76; RESP 16; TEMP 36.6; O2SAT 92
[2019-03-27 07:00] VITALS: O2SAT 96
--- NOTE | 2019-03-27 08:50 | PM.DS.1 ---
History of Present Illness Chief complaint: Fever,Shakes, feels like passing out Narrative: Patient is a 63-year-old female in previously good health, without PCP, who presented to the emergency department due to fever, rigors and weakness. Symptoms began about a week ago with hematuria and dysuria. Patient increased fluid intake and drank cranberry juice hoping to self treat UTI. About 3 days ago she started developing fevers, rigors, and vomiting. She texted her friend this morning stating she needed help were upon her friend founded her at home in bed in a position with active rigors and brought her to the ER. Patient also indicates a mild cough. Denies back or abdominal pain. No recent antibiotic usage. She is not on any medications. ER evaluation included abnormal vitals with temp 103.3?, heart rate 111, BP 155/85 and sat 94%. WBC 16.6, procalcitonin 41, creatinine 1.5, mildly elevated LFTs. Abdomen and pelvis CT with contrast showed severe bilateral perinephric stranding, chest x-ray normal. Family history: Father with coronary disease Social history: Former smoker, quit 15 years ago. Lives by self. Discharge Providers Date of admission: 03/24/19 13:16 Discharge Date: 03/27/19 Consults: 03/25/19 13:41 Consult to Occupational Therapy Evaluate & Treat Comment: Physician Instructions: Evaluate and treat Consult to Physical Therapy Evaluate & Treat Comment: Physician Instructions: Evaluate and Treat Discharge provider: Sandor Go MD Summary Discharge Diagnosis: 1. Acute bilateral bacterial pyelonephritis 2. Sepsis with E coli bacteremia 3. Transaminitis likely chronic, hepatitis serologies pending 4. Acute kidney injury 5. Possible CKD stage 3 6. Acute anemia likely inflammatory block and dilution Hospital Course: Patient admitted with sepsis due to obvious acute pyelonephritis.. She was treated with volume resuscitation and Zosyn initially then switched to Rocephin on morning of discharge. Blood in urine cultures grew pansensitive E coli. She is feeling altogether much better with resolution of fever and WBC improving from 16.6 down to 10.2. She had mild elevation of liver enzymes on admission which persisted on repeat testing. Hepatitis serologies pending at time of discharge. There is no indication of fatty liver disease on her CT imaging. Also her renal function improved from creatinine 1.60 on admission down to 1.40 on March 26 but has not fully normalized. Unclear whether she has element of chronic kidney disease. Also she had significant drop in her hemoglobin and hematocrit with hemoglobin 12.7 on admit, likely hemoconcentrated, down to 10.1 on March 26 which is likely due to inflammatory block and IV fluid dilution. She should have outpatient follow-up of her renal function, elevation of liver enzymes, and anemia. Patient has not seen PCP for the past 10 years. She is referred to [facility] for hospital follow-up and to establish care. Status at Discharge Cognitive/behavioral status at discharge: oriented Functional status at discharge: independent ambulation Overall status at discharge: patient is back to baseline Time Spent with Patient Greater than 30 minutes Exam Vital Signs (past 8 hours): - 03/27/19 05:45 Temperature 97.9 F Pulse Rate 76 Respiratory Rate 16 Blood Pressure 140/87 Pulse Oximetry 92 Oxygen Delivery Method Room Air Oxygen Flow Rate 0 Objective Labs Result Diagrams: 03/26/19 06:30 03/26/19 06:30 Discharge Plan Discharge Plan Patient Disposition: Home Discharge comment: d/c after dose of IV Rocephin this AM Discharge Med Rec/Prescriptions Prescriptions: New cefuroxime axetil 500 mg tablet 500 mg PO Q12H 10 Days Qty: 20 RF: 0 Continued Vitamin D3 tablet 2,000 unit PO 1-2XD RF: 0 Provider Discharge Instructions Diet: Diet as Tolerated Skin/Wound/Dressing Care Report to your healthcare provider any signs of infection, such as:: chills, fever Visit Report/Discharge Packet Instructions: Urinary Tract Infection, DI for Urinary Tract Infection (UTI) Discharge Data Attending Provider: Sandor Go Admit Date/Time: 03/24/19 13:16 Quality VTE Deep Vein Thrombosis/Pulmonary Embolism Present on Admission: No
[2019-03-27 09:00] VITALS: BP 152/81; PULSE 69; RESP 17; TEMP 36.8; O2SAT 98
[2019-03-27] MEDS: CEFTRIAXONE 1 GM/50 ML FROZ.PIGGY IV (09:19)
--- NOTE | 2019-03-27 10:28 | PC.NURSE ---
Rachel is eager to go home today. She has stable VS, no fevers, and is up and about in the room. She is voiding without difficultly and eating solid food. Her low flank/back pain is controlled with plain tylenol. Now dose Rocephin has been given.
[2019-03-29 08:31] LABS: Hepatitis A Antibody IgM NONREACTIVE (NONREACTIVE); Hepatitis Acute Panel Interp 0.01; Hepatitis B Core Antibody IgM NONREACTIVE (NONREACTIVE); Hepatitis B Surface Antigen NONREACTIVE (NONREACTIVE); Hepatitis C Antibody NONREACTIVE
== END 2019-03-27 11:40 | disposition home or self-care (01) | DRG 872 ==
LOC: ED 13:07 → AC 13:20
PROVIDERS: Internal Medicine; Nurse Practitioner Adult Health; Admitting Provider Internal Medicine; Emergency Provider Emergency Medicine; Visit Provider Internal Medicine
DX: A41.9 Sepsis, unspecified organism (principal); N17.9 Acute kidney failure, unspecified; N10 Acute pyelonephritis; R65.20 Severe sepsis without septic shock; B96.20 Unspecified Escherichia coli [E. coli] as the cause of diseases classified elsewhere; N18.3 Chronic kidney disease, stage 3 (moderate); D64.9 Anemia, unspecified
CPT/HCPCS: 36415; 36591; 71045; 74177; 80048; 80053; 80074; 80076; 81001; 83605; 83690; 83735; 84145; 85025; 87040; 87077; 87086; 87150; 87186; 87205; 87633; 96361; 96365; 96375; 97161; 99283; 99285; 99406; J0780; J1885; J2405; J2543; Q9967

== ENCOUNTER → 2019-08-20 11:42 | Outpatient (CLI) | payer MEDICARE, OTHER, SELFPAY ==
[2019-03-24 14:41] VITALS: BMI 26.2
[2019-08-20 13:40] LABS: BUN Creatinine Ratio 22.5 (6-22); Blood Urea Nitrogen 18 mg/dL (7-17); Calcium 10.3 mg/dL (8.4-10.2); Carbon Dioxide 27 mmol/L (22-32); Chloride 102 mmol/L (98-107); Estimated Glomerular Filt Rate > 60.0 mL/min (>60); Glucose 93 mg/dL (80-110); HDL Cholesterol 87 mg/dL (40-60); HEMOLYSIS < 15 (0-50); Potassium 4.9 mmol/L (3.4-5.1); Sodium 141 mmol/L (137-145); Triglycerides 189 mg/dL (35-150)
[2019-08-20 13:48] LABS: Cholesterol 402 mg/dL (140-199); LDL Cholesterol Calculated 277 mg/dL (<100)
[2019-08-20 14:01] LABS: Thyroid Stimulating Hormone 4.55 uIU/mL (0.47-4.68)
== END ==
PROVIDERS: Visit Provider Internal Medicine
DX: Z13.220 Encounter for screening for lipoid disorders (principal); Z13.1 Encounter for screening for diabetes mellitus; R68.89 Other general symptoms and signs
CPT/HCPCS: 36415; 80048; 80061; 84443

== ENCOUNTER → 2020-04-21 10:48 | Outpatient (CLI) | payer MEDICARE, OTHER, SELFPAY ==
[2019-03-24 14:41] VITALS: BMI 26.2
[2020-04-21 12:59] LABS: Alanine Aminotransferase 45 IU/L (<35); Albumin 4.7 g/dL (3.5-5.0); Albumin Globulin Ratio 1.5 (1.0-2.8); Alkaline Phosphatase 66 U/L (38-126); Aspartate Aminotransferase 37 IU/L (14-36); BUN Creatinine Ratio 22.7 (6-22); Bilirubin Total 0.6 mg/dL (0.2-1.3); Blood Urea Nitrogen 20 mg/dL (7-17); Calcium 10.1 mg/dL (8.4-10.2); Carbon Dioxide 27 mmol/L (22-32); Chloride 103 mmol/L (98-107); Cholesterol 282 mg/dL (140-199); Estimated Glomerular Filt Rate > 60.0 mL/min (>60); Globulin 3.2 g/dL (1.7-4.1); Glucose 97 mg/dL (80-110); HDL Cholesterol 74 mg/dL (40-60); HEMOLYSIS < 15 (0-50); LDL Cholesterol Calculated 170 mg/dL (<100); Potassium 4.4 mmol/L (3.4-5.1); Sodium 139 mmol/L (137-145); Total Protein 7.9 g/dL (6.3-8.2); Triglycerides 190 mg/dL (35-150)
== END ==
PROVIDERS: PCP Internal Medicine; Referring Provider Internal Medicine; Visit Provider Internal Medicine
DX: I10 Essential (primary) hypertension (principal); E78.5 Hyperlipidemia, unspecified
CPT/HCPCS: 36415; 80053; 80061

== ENCOUNTER → 2020-07-14 10:20 | Outpatient (CLI) | payer MEDICARE, OTHER, SELFPAY ==
[2019-03-24 14:41] VITALS: BMI 26.2
[2020-07-14 12:02] LABS: Alanine Aminotransferase 54 IU/L (<35); Aspartate Aminotransferase 41 IU/L (14-36); HDL Cholesterol 60 mg/dL (40-60); Triglycerides 294 mg/dL (35-150)
[2020-07-14 12:10] LABS: Cholesterol 387 mg/dL (140-199); LDL Cholesterol Calculated 268 mg/dL (<100)
== END ==
PROVIDERS: PCP Internal Medicine; Referring Provider Internal Medicine; Visit Provider Internal Medicine
DX: E78.5 Hyperlipidemia, unspecified (principal)
CPT/HCPCS: 36415; 80061; 84450; 84460

== ENCOUNTER → 2020-10-01 12:51 | Outpatient (CLI) | payer MEDICARE, OTHER, SELFPAY ==
[2019-03-24 14:41] VITALS: BMI 26.2
== END ==
PROVIDERS: PCP Internal Medicine; Referring Provider Internal Medicine; Visit Provider Internal Medicine
DX: M85.852 Other specified disorders of bone density and structure, left thigh (principal); Z78.0 Asymptomatic menopausal state; Z90.722 Acquired absence of ovaries, bilateral; Z87.891 Personal history of nicotine dependence
CPT/HCPCS: 77080

== ENCOUNTER → 2020-11-17 10:48 | Outpatient (CLI) | payer MEDICARE, OTHER, SELFPAY ==
[2019-03-24 14:41] VITALS: BMI 26.2
[2020-11-17 11:57] LABS: Alanine Aminotransferase 87 IU/L (<35); Aspartate Aminotransferase 53 IU/L (14-36); Cholesterol 260 mg/dL (140-199); HDL Cholesterol 61 mg/dL (40-60); LDL Cholesterol Calculated 152 mg/dL (<100); Triglycerides 235 mg/dL (35-150)
== END ==
PROVIDERS: PCP Internal Medicine; Referring Provider Internal Medicine; Visit Provider Internal Medicine
DX: I10 Essential (primary) hypertension (principal); E78.5 Hyperlipidemia, unspecified
CPT/HCPCS: 36415; 80061; 84450; 84460

== ENCOUNTER → 2021-03-16 09:56 | Outpatient (CLI) | payer OTHER, SELFPAY ==
[2019-03-24 14:41] VITALS: BMI 26.2
[2021-03-16 11:25] LABS: Alanine Aminotransferase 60 IU/L (<35); Albumin 4.5 g/dL (3.5-5.0); Albumin Globulin Ratio 1.5 (1.0-2.8); Alkaline Phosphatase 83 U/L (38-126); Aspartate Aminotransferase 47 IU/L (14-36); BUN Creatinine Ratio 22.8 (6-22); Bilirubin Total 0.6 mg/dL (0.2-1.3); Blood Urea Nitrogen 18 mg/dL (7-17); Calcium 10.1 mg/dL (8.4-10.2); Carbon Dioxide 31 mmol/L (22-32); Chloride 100 mmol/L (98-107); Cholesterol 228 mg/dL (140-199); Estimated Glomerular Filt Rate > 60.0 mL/min (>60); Glucose 105 mg/dL (80-110); HDL Cholesterol 73 mg/dL (40-60); HEMOLYSIS < 15 (0-50); LDL Cholesterol Calculated 131 mg/dL (<100); Potassium 4.1 mmol/L (3.4-5.1); Sodium 139 mmol/L (137-145); Total Protein 7.5 g/dL (6.3-8.2); Triglycerides 122 mg/dL (35-150)
== END ==
PROVIDERS: PCP Internal Medicine; Referring Provider Internal Medicine; Visit Provider Internal Medicine
DX: E78.5 Hyperlipidemia, unspecified (principal); I10 Essential (primary) hypertension
CPT/HCPCS: 36415; 80053; 80061

== ENCOUNTER → 2023-01-07 09:23 | Outpatient (CLI) | payer MEDICARE, SELFPAY ==
[2019-03-24 14:41] VITALS: BMI 26.2
--- NOTE | 2023-01-07 09:24 | DI.MG.S_ITS ---
BILATERAL DIGITAL SCREENING MAMMOGRAM 3D/2D WITH CAD: 01/07/2023 CLINICAL: Routine screening. Baseline by default. No prior exams were available for comparison. There are scattered areas of fibroglandular density in both breasts (category b / 25%-50% glandular tissue). Current study was also evaluated with a Computer Aided Detection (CAD) system. No significant masses, calcifications, or other findings are seen in either breast. IMPRESSION: NEGATIVE There is no mammographic evidence of malignancy. A 1 year screening mammogram is recommended. Based on the Tyrer Cuzick model (a risk assessment model) the patient's lifetime risk is 11.0% and her 10 year risk is 5.9%. According to the ACR, ACS, and NCCN guidelines, an annual breast MRI exam along with mammogram is recommended if the patient's lifetime risk is 20% or greater. This exam was interpreted at Station ID: [id number]. NOTE: For mammograms, a report in lay terms will be sent to the patient. Approximately 15% of breast malignancies will not be visualized mammographically. In the management of a palpable breast mass, a negative mammogram must not discourage biopsy of a clinically suspicious lesion. Electronically Signed By: Jessica johnson/liliana:01/09/2023 12:41:24 letter sent: Normal Exam ACR BI-RADS Category 1: Negative [id number]
== END ==
PROVIDERS: PCP Internal Medicine; Referring Provider Internal Medicine; Visit Provider Internal Medicine
DX: Z12.31 Encounter for screening mammogram for malignant neoplasm of breast (principal)
CPT/HCPCS: 77063; 77067

== ENCOUNTER → 2025-04-15 12:03 | Outpatient (CLI) | payer MEDICARE, SELFPAY ==
[2019-03-24 14:41] VITALS: BMI 26.2
--- NOTE | 2025-04-15 12:09 | DI.RAD.S_ITS ---
PROCEDURE: XR LUMBAR SPINE 2-3V INDICATIONS: CHRONIC BILAT LOW BACK PAIN WITH BILAT SCIATICA TECHNIQUE: 3 views of the lumbar spine were acquired. COMPARISON: None. FINDINGS: Lumbar spine curvature and alignment: Grade 1 L4-5 spondylolisthesis due to degenerative facet disease. Slight leftward curve appreciated. Bones: Moderate chronic osteitis pubis incidentally seen. No focal osseous abnormalities in the lumbar spine. Disc spaces: Moderate L5-S1 degenerative disc and facet disease appreciated. There is mild degenerative disc disease in the remaining lumbar spine. Moderate L4-5 degenerative facet disease Soft tissues: No soft tissue swelling, calcification or mass. IMPRESSION: Multilevel degeneration Grade 1 L4-5 spondylolisthesis due to degenerate facet disease Moderate chronic osteitis pubis incidentally noted. Severe left hip degeneration . Dictated by: Bryant Stephenson M.D. on 04/16/2025 at 10:02 Approved by: Bryant Stephenson M.D. on 04/16/2025 at 10:04
== END ==
PROVIDERS: PCP Family Medicine; Referring Provider Family Medicine; Visit Provider Family Medicine
DX: M54.42 Lumbago with sciatica, left side (principal); M54.41 Lumbago with sciatica, right side; G89.29 Other chronic pain; M43.16 Spondylolisthesis, lumbar region; M47.816 Spondylosis without myelopathy or radiculopathy, lumbar region; M46.26 Osteomyelitis of vertebra, lumbar region
CPT/HCPCS: 72100

== ENCOUNTER → 2025-05-29 12:28 | Outpatient (CLI) | payer MEDICARE, SELFPAY ==
[2019-03-24 14:41] VITALS: BMI 26.2
--- NOTE | 2025-05-29 12:30 | DI.ECHO.S_ITS ---
[facility] : : [id number] : [place] : : [id number] : : Phone: [phone] Echocardiogram Report + + :Name: SARA JULES Study Date: 05/29/2025 Height: 60 in : :Hospital ReadingLocation: Weight: 160 lb : : Gender: Female BSA: 1.7 m2 : :: 1955 Age: 69 yrs BP: 198/122 mmHg: :Reason For Study: PREOP CLEARANCE, MURMUR : :Ordering Physician: TIEN, : :MADELINE Rocha Performed By: Wilbert Leonardo : :Referring: MADELINE CHAUHAN : + + Interpretation Summary The ejection fraction is estimated to be 45-50%. Grade I diastolic dysfunction. The right ventricle is normal in size and function. No significant valvular abnormalities. Pulmonary artery pressures cannot be estimated because of the lack of a measurable TR jet velocity but the IVC suggests a CVP of around 3 mmHg. Procedure: A two-dimensional transthoracic echocardiogram with color flow and Doppler was performed. The study quality was technically good. There is no prior echocardiogram noted for this patient. The patient was in normal sinus rhythm during the exam. Left Ventricle: The left ventricle is normal in size. There is normal left ventricular wall thickness. There is no ventricular septal defect visualized. The ejection fraction is estimated to be 45-50%. There is mild global hypokinesis of the left ventricle. Diastolic parameters suggest a relaxation abnormality of the left ventricle, consistent with probable normal filling pressures. Right Ventricle: The right ventricle is normal in size and function. Atria: The left atrial size is normal. Right atrial size is normal. There is no Doppler evidence for an interatrial shunt. Mitral Valve: The mitral valve leaflets appear mildly thickened, but open well. There is no mitral regurgitation noted. Aortic Valve: The aortic valve is trileaflet. The aortic valve opens well. There is no aortic valve stenosis. No aortic regurgitation is present. Tricuspid Valve: The tricuspid valve leaflets are thin and pliable. No tricuspid regurgitation. Pulmonary artery pressures cannot be estimated because of the lack of a measurable TR jet velocity but the IVC suggests a CVP of around 3 mmHg. Pulmonic Valve: The pulmonic valve is not well seen, but is grossly normal. There is trace pulmonic regurgitation. Great Vessels: The aortic root is normal size. The dimensions of the ascending aorta are normal. The pulmonary artery is not well visualized, but is probably normal size. The IVC is of normal diameter and collapses greater than 50% with a sniff. This suggests a low right atrial pressure of 3 mm Hg. Pericardium/ Pleura There is no pericardial effusion. There is no pleural effusion. MMode/2D Measurements & Calculations LVIDd: 4.7 cm LVOT diam: 1.8 cm LVIDs: 3.7 cm Ao root diam: 3.0 cm FS: 22.6 % asc Aorta Diam: 3.4 cm EPSS: 0.89 cm IVSd: 1.0 cm LVPWd: 0.99 cm LV penning[place]. diameter/BSA (cm/m^2): 2.8 LV sys. diameter/BSA (cm/m^2): 2.2 LA A2 area: 13.8 cm2 RA long axis: 3.8 cm LA A4 area: 13.1 cm2 RA area: 8.6 cm2 LA length (vol): 4.5 cm RA vol: 16.3 ml LA vol: 34.2 ml RA : 9.6 ml/m2 LA vol index: 20.1 ml/m2 RVD1 (basal): 2.0 cm RVD2 (mid): 1.5 cm TAPSE: 2.3 cm Doppler Measurements & Calculations Ao V2 max: 171.3 cm/sec LVOT Max Alfonzo: 91.8 cm/sec Ao V2 mean: 110.7 cm/sec LV V1 max P.4 mmHg Ao max P.7 mmHg LV V1 VTI: 18.4 cm Ao mean P.7 mmHg GISELLE(I,D): 1.6 cm2 Ao V2 VTI: 30.3 cm GISELLE(V,D): 1.4 cm2 sev ratio: 0.61 GISELLE indexed to BSA (cm^2/m^2): 0.94 MV E max alfonzo: 52.8 cm/sec PA V2 max: 105.5 cm/sec MV A max alfonzo: 67.3 cm/sec PA V2 mean: 66.4 cm/sec MV E/A: 0.78 PA mean P.1 mmHg Med Peak E' Alfonzo: 3.9 cm/sec PA pr(Accel): 56.7 mmHg E/E' med: 13.5 Lat Peak E' Alfonzo: 5.5 cm/sec E/E' lat: 9.7 E/e' average: 11.6 MV dec time: 0.25 sec SV(LVOT): 48.2 ml Reading Physician:08:58 PM
== END ==
PROVIDERS: PCP Family Medicine; Referring Provider Orthopaedic Surgery; Visit Provider Orthopaedic Surgery
DX: Z01.818 Encounter for other preprocedural examination (principal)
CPT/HCPCS: 93306